=== PATIENT | male | born 1950 | race Caucasian/White ===

== ENCOUNTER → 2020-09-08 15:26 | Outpatient (BNVA) | payer BC, SELFPAY | PROVIDERS: PCP Family Medicine; Visit Provider Urology ==

== ENCOUNTER → 2021-06-16 09:53 | Outpatient (BNVA) | payer BC, SELFPAY | PROVIDERS: PCP Family Medicine; Visit Provider Urology ==

== ENCOUNTER → 2022-06-15 13:38 | Outpatient (BNVA) | payer BC, SELFPAY | PROVIDERS: PCP Family Medicine; Visit Provider Urology | DX: Z13.89 Encounter for screening for other disorder (principal) ==

== ENCOUNTER 2022-12-11 13:38 | Outpatient (AMB) | payer BC, SELFPAY ==
--- NOTE | 2022-12-11 13:39 | MHC.OFFVIS ---
Intake Intake Visit Reasons: 6mo/ testo Intake Note: Patient presents today for tele visit follow up testosterone Urology Medications: sildenafil, testosterone Blood Thinner: none Custom Home Installer Required: No Allergies No Known Allergies [No Known Allergies*] Allergy (Verified 12/11/22 22:17) Medication List - Last Reconciled 12/11/22 by JERSEY Nowak sildenafil 50 mg PO DAILY PRN testosterone 2 pumps topical DAILY 28 days HPI HPI Comments History of Present Illness Details Frankie is a pleasant 72 year old male patient of Dr. Hand. He is being follow-up on today via video telehealth for his hypogonadism and erectile dysfunction. In discussion with the patient today reports to be doing and feeling well. He discusses his frustration in recent canceled appointment due to labs not being obtain. Recent testosterone results reviewed with the patient today. Testosterone 12/12--. However it does not appear patient obtain CBC. This was discussed with the patient today he reports he will report to [facility] laboratory to have his labs drawn the . He reports compliance with AndroGel as prescribed. he discusses feeling testosterone therapy has improved his energy and feels much better. he otherwise offers no issues or concerns at this time. He denies any issues with his urination. He is happy with his current voiding parameters. He otherwise offers no issues or concerns. Discussed and stressed the importance of obtaining labs this week as well as in near future appointments for continuity of care. 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 Feels AndroGel continuing to work. Laboratories 08/10 Hct 44, PSA 0.9 - prior T levels have been 600 - 05/13 T 448 P 1.0, 12/11 T 450, 06/14 T 370 P 1.7, 12/12 T 652 Adverse effects - none reported Erectile dysfunction Response to Viagra 150 mg Discussed that maximum tested doses are 200 mg limited by vasocongestion Continue with periodic laboratory monitoring PFS Medical History Erectile dysfunction Hypogonadism in male Surgical History History of surgery Review of Systems Const Reports as per HPI Eyes Reports no additional complaints ENT Reports no additional complaints Card Reports no additional complaints Resp Reports no additional complaints GI Reports no additional complaints Reports as per HPI Musc Reports no additional complaints Neuro Reports no additional complaints Psych Reports as per HPI Endo Reports no additional complaints Edmund/Lymph Reports no additional complaints Aller/Immun Reports no additional complaints Physical Exam Const General: cooperative, healthy appearing, comfortable, no acute distress, well developed, alert and awake Orientation/consciousness: patient oriented x3 Resp Effort & Inspection: normal respiratory effort and able to speak in complete sentences Neuro General: patient oriented x3 Psych Appearance: grossly normal and well kempt Mental Status: mental status grossly normal Speech and movement: Clear speech present Affect: normal affect Attitude: cooperative Thought process: Impoverished thought process present Thought content: Normal thought content present Insight: Fair insight present (Psych) Judgement: Fair judgement present (Psych) Assessment & Plan Assessment & Plan (1) Low testosterone: Code(s): R79.89 - Other specified abnormal findings of blood chemistry (2) BPH (benign prostatic hyperplasia): Code(s): N40.0 - Benign prostatic hyperplasia without lower urinary tract symptoms (3) Erectile dysfunction: Code(s): N52.9 - Male erectile dysfunction, unspecified Plan Recent testosterone results reviewed with the patient today; as noted above. Patient will obtain CBC this week; discussed and stressed the importance in doing so. Discussed at length importance of obtaining labs as ordered as well as for continuity of care. Patient denies any urological issues or concerns at this time. He is happy with current voiding parameters. Refill provided. PSA, testosterone, and CBC in 6 months. Follow-up in 6 months with labs to be completed prior; or sooner with any issues, concerns, and or questions. Orders: Orders Prostate Specific Antigen 6 Months N40.0 - Benign prostatic hyperplasia without lower urinary tract symptoms Complete Blood Count no Diff 6 Months E29.1 - Testicular hypofunction Testosterone, Total 6 Months R79.89 - Other specified abnormal findings of blood chemistry Medications: Refilled testosterone apply 1 pump amount over max area of EACH upper arm and shoulder 2 pumps topical DAILY 75 grams 5RF 28 days R79.89 - Other specified abnormal findings of blood chemistry Patient Instructions: The patient had an opportunity to ask questions regarding the treatment plan. All questions were answered. Physical exam, labs, and imaging were discussed and reviewed in detail. As well as risks, benefits, and discussion of treatment choices. No major barriers to understanding were identified. The patient expressed understanding and agreement with the above treatment plan. The patient was made aware they should contact our office by phone for worsening of their current condition, the appearance of new symptoms, or with any questions or concerns. Compliance is encouraged with any medications and follow up testing that is ordered. It is a privilege to be allowed the opportunity to participate in? your urological care.? Again, if you have any questions or concerns If you have any questions or concerns please do not hesitate to contact me. The office is [phone]. This note is constructed using voice recognition software. While every effort has been made to ensure accuracy supervisor industrial garment errors may have been included. Yours sincerely, JERSEY Nowak Telehealth Telehealth Location of provider rendering services: practice address Location of patient: address on file Patient Identification confirmed using: Name, : Yes Telehealth method: video Patient verbally consented to treatment: Yes Patient verbally consented to billing insurance company: Yes Patient informed of any privacy concerns related to visit: Yes Minutes spent on Phone/Video with Pt.: 15 Coding Level of Care Code Tele Est Pt Level 4 (10776) Diagnoses Low testosterone R79.89 BPH (benign prostatic hyperplasia) N40.0 Erectile dysfunction N52.9
== END 2022-12-11 15:52 | disposition home or self-care (01) ==
LOC: HO.HUSH 13:39
PROVIDERS: PCP Family Medicine; Visit Provider Nurse Practitioner Family
DX: R79.89 Other specified abnormal findings of blood chemistry (principal); N40.0 Benign prostatic hyperplasia without lower urinary tract symptoms; N52.9 Male erectile dysfunction, unspecified
CPT/HCPCS: 99214

== ENCOUNTER → 2022-12-11 13:38 | Outpatient (BNVA) | payer BC, SELFPAY | PROVIDERS: PCP Family Medicine; Visit Provider Nurse Practitioner Family ==

== ENCOUNTER 2023-06-28 09:21 | Outpatient (AMB) | payer BC, SELFPAY ==
--- NOTE | 2023-06-28 09:22 | A.OFFVIS_ITS ---
Intake Intake Visit Reasons: 6MLabs(set) Intake Note: Patient presents today for tele visit follow up testosterone PSA: 1.50 Testosterone: 436 Urology Medications: sildenafil, testosterone Blood Thinner: none Composing Machine Operator Required: No Allergies No Known Allergies [No Known Allergies*] Allergy (Verified 06/28/23 09:40) Medication List - Last Reconciled 06/28/23 by JERSEY Nowak lorazepam mg PO sildenafil 50 mg PO DAILY PRN testosterone 2 pumps topical DAILY 28 days HPI HPI Comments History of Present Illness Details Frankie is a pleasant 72 year old male patient of Dr. Hand. He is being follow-up on today via video telehealth for his hypogonadism and erectile dysfunction. In discussion with the patient today reports to be doing and feeling well. Recent testosterone, PSA, and CBC results reviewed with the patient today. 06/15--testosterone 436, H/H 15.4/46.5, PSA 1.5. He reports compliance with AndroGel as prescribed. He discusses feeling testosterone therapy has improved his energy and feels much better. He otherwise offers no issues or concerns at this time. He denies any issues with his urination. He is happy with his current voiding parameters. He otherwise offers no issues or concerns. Discussed lifestyle modifications to assist with erectile dysfunction as well as hypogonadism. 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 Feels AndroGel continuing to work. Laboratories 08/10 Hct 44, PSA 0.9 - prior T levels have been 600 - 05/13 T 448 P 1.0, 12/11 T 450, 06/14 T 3 70 P 1.7, 12/12 T 652 Adverse effects - none reported Erectile dysfunction Response to Viagra 150 mg Discussed that maximum tested doses are 200 mg limited by vasocongestion Continue with periodic laboratory monitoring [facility] Medical History Erectile dysfunction Hypogonadism in male Surgical History History of surgery Review of Systems Const Reports as per HPI Eyes Reports no additional complaints ENT Reports no additional complaints Card Reports no additional complaints Resp Reports no additional complaints GI Reports no additional complaints Reports as per HPI Musc Reports no additional complaints Neuro Reports no additional complaints Psych Reports as per HPI Endo Reports no additional complaints Edmund/Lymph Reports no additional complaints Aller/Immun Reports no additional complaints Physical Exam Const General: cooperative, healthy appearing, comfortable, no acute distress, well developed, alert and awake Orientation/consciousness: patient oriented x3 Resp Effort & Inspection: normal respiratory effort and able to speak in complete sentences Neuro General: patient oriented x3 Psych Appearance: grossly normal and well kempt Mental Status: mental status grossly normal Speech and movement: Clear speech present Affect: normal affect Attitude: cooperative Thought process: Normal thought process present Thought content: Normal thought content present Insight: Fair insight present (Psych) Judgement: Fair judgement present (Psych) Assessment & Plan Assessment & Plan (1) Low testosterone: Code(s): R79.89 - Other specified abnormal findings of blood chemistry (2) BPH (benign prostatic hyperplasia): Code(s): N40.0 - Benign prostatic hyperplasia without lower urinary tract symptoms (3) Erectile dysfunction: Code(s): N52.9 - Male erectile dysfunction, unspecified Plan Recent testosterone results reviewed with the patient today; as noted above. Patient denies any urological issues or concerns at this time. He is happy with current voiding parameters. Refill provided. Discussed at length lifestyle modifications to assist with ED as well as hypogonadism. He reports adequate erections and maintaining erections with 50 mg of Cialis as needed prior to sexual activity. PSA, testosterone, and CBC in 6 months. Follow-up in 6 months with labs to be completed prior; or sooner with any issues, concerns, and or questions. Orders: Orders PSA,Total (Free>4and<10) 6 Months R7. - Other specified abnormal findings of blood chemistry Testosterone, Free/Total 6 Months R7. - Other specified abnormal findings of blood chemistry Complete Blood Count no Diff 6 Months E29.1 - Testicular hypofunction, R7. - Other specified abnormal findings of blood chemistry Medications: Refilled testosterone apply 1 pump amount over max area of EACH upper arm and shoulder 2 pumps topical DAILY 28 days 75 grams 5RF R7. - Other specified abnormal findings of blood chemistry Patient Instructions: The patient had an opportunity to ask questions regarding the treatment plan. All questions were answered. Physical exam, labs, and imaging were discussed and reviewed in detail. As well as risks, benefits, and discussion of treatment choices. No major barriers to understanding were identified. The patient expressed understanding and agreement with the above treatment plan. The patient was made aware they should contact our office by phone for worsening of their current condition, the appearance of new symptoms, or with any questions or concerns. Compliance is encouraged with any medications and follow up testing that is ordered. It is a privilege to be allowed the opportunity to participate in? your urological care.? Again, if you have any questions or concerns If you have any questions or concerns please do not hesitate to contact me. The office is [phone]. This note is constructed using voice recognition software. While every effort has been made to ensure accuracy radio technician errors may have been included. Yours sincerely, JERSEY Nowak Telehealth Telehealth Location of provider rendering services: practice address Location of patient: address on file Patient Identification confirmed using: Name, : Yes Telehealth method: video Patient verbally consented to treatment: Yes Patient verbally consented to billing insurance company: Yes Patient informed of any privacy concerns related to visit: Yes Minutes spent on Phone/Video with Pt.: 20 Coding Level of Care Code Tele Est Pt Level 4 (03866) Diagnoses Low testosterone R79.89 BPH (benign prostatic hyperplasia) N40.0 Erectile dysfunction N52.9
== END 2023-06-28 09:56 | disposition home or self-care (01) ==
LOC: HO.HUSH 09:22
PROVIDERS: PCP Family Medicine; Referring Provider Family Medicine; Visit Provider Nurse Practitioner Family
DX: R79.89 Other specified abnormal findings of blood chemistry (principal); N40.0 Benign prostatic hyperplasia without lower urinary tract symptoms; N52.9 Male erectile dysfunction, unspecified
CPT/HCPCS: 99214

== ENCOUNTER → 2023-06-28 09:21 | Outpatient (BNVA) | payer BC, SELFPAY | PROVIDERS: PCP Family Medicine; Visit Provider Nurse Practitioner Family ==

== ENCOUNTER 2024-01-02 08:31 | Outpatient (AMB) | payer BC, SELFPAY ==
--- NOTE | 2024-01-02 08:32 | MHC.OFFVIS ---
Intake Visit Reasons: follow up testosterone, psa, and cbc labs Intake Note: Patient is Present for Telephone Follow Up lab Urology Med:Testosterone, Sildenafil Antibiotic Allergy:None Blood Thinner: None PSA,Testosterone,CBC completed on 12/20/23 Javascript Web Developer Required: No Accompanied by: Self / Same As Patient Allergies No Known Allergies [No Known Allergies*] Allergy (Verified 01/02/24 08:49) Medication List - Last Reconciled 01/02/24 by JERSEY Nowak lorazepam mg PO meloxicam 7.5 mg PO BID sildenafil 50 mg PO DAILY PRN testosterone 2 pumps topical DAILY 28 days HPI Comments Details: Frankie is a pleasant 73 year old male patient of Dr. Hand. He is being follow-up on today via video telehealth for his hypogonadism and erectile dysfunction. In discussion with the patient today reports to be doing and feeling well. Recent testosterone, PSA, and CBC results reviewed with the patient today. Testosterone 12/13 606, free testosterone 17.7%, PSA 1.2, H/H 15.6/46.7. He reports compliance with AndroGel as prescribed. He discusses feeling testosterone therapy has improved his energy and feels much better. He reports no bothersome urinary issues. He does however discuss his erectile dysfunction. He reports at times he feels p.r.n. Viagra is adequate with obtaining and maintaining erections that are adequate for penetration however does not feel it is always consistent. We discussed at length potential causes of erectile dysfunction as well as further treatment options. We discussed risks and benefits of these treatment options. We discussed lifestyle modifications to assist with erectile dysfunction as well as hypogonadism. He otherwise offers no other issues or concerns at this time. [facility] Medical History Erectile dysfunction Hypogonadism in male Surgical History History of surgery Review of Systems Const Reports as per HPI Eyes Reports no additional complaints ENT Reports no additional complaints Card Reports no additional complaints Resp Reports no additional complaints GI Reports no additional complaints Reports as per HPI Musc Reports no additional complaints Neuro Reports no additional complaints Psych Reports as per HPI Endo Reports no additional complaints Edmund/Lymph Reports no additional complaints Aller/Immun Reports no additional complaints Physical Exam Const General: cooperative, healthy appearing, comfortable, no acute distress, well developed, alert and awake Orientation/consciousness: patient oriented x3 Resp Effort & Inspection: normal respiratory effort and able to speak in complete sentences Neuro General: patient oriented x3 Psych Appearance: grossly normal and well kempt Mental Status: mental status grossly normal Speech and movement: Clear speech present Affect: normal affect Attitude: cooperative Thought process: Normal thought process present Thought content: Normal thought content present Insight: Fair insight present (Psych) Judgement: Fair judgement present (Psych) Telehealth Telehealth Telehealth Platform: [employer] Location of provider rendering services: practice address Location of patient: address on file Patient Identification confirmed using: Name, : Yes Telehealth method: video Patient verbally consented to treatment: Yes Patient verbally consented to billing insurance company: Yes Patient informed of any privacy concerns related to visit: Yes Minutes spent on Phone/Video with Pt.: 35 Assessment & Plan Assessment & Plan (1) Erectile dysfunction: Code(s): N52.9 - Male erectile dysfunction, unspecified Category: Medical (2) Low testosterone: Code(s): R79.89 - Other specified abnormal findings of blood chemistry Category: Medical Plan Recent labs reviewed with the patient today; as noted above. Patient currently denies any bothersome urinary issues. He reports be happy with current voiding parameters. Refill provided. Discussed at length lifestyle modifications to assist with ED as well as hypogonadism. Will obtain PSA, testosterone, and CBC in 6 months. Start low-dose Cialis as discussed and prescribed. Discussed further treatment options for erectile dysfunction; this was discussed at length; risks and benefits of these options were discussed. All questions were answered. Continue p.r.n. Viagra Follow-up in 6 months with labs to be completed prior; or sooner with any issues, concerns, and or questions. Orders: Orders Prostate Specific Antigen 6 Months R79.89 - Other specified abnormal findings of blood chemistry Complete Blood Count no Diff 6 Months E29.1 - Testicular hypofunction Testosterone, Free/Total 6 Months E11.69 - Type 2 diabetes mellitus with other specified complication, N52.1 - Erectile dysfunction due to diseases classified elsewhere Medications: New tadalafil (Cialis) [id number] [facility] [id number] Member [id number] 5 mg PO DAILY 90 days 90 tabs 0RF Refilled testosterone apply 1 pump amount over max area of EACH upper arm and shoulder 2 pumps topical DAILY 28 days 75 grams 5RF R79.89 - Other specified abnormal findings of blood chemistry Coding Level of Care Code Tele Est Pt Level 4 (77560) Diagnoses Erectile dysfunction N52.9 Low testosterone R79.89 Time Spent (min) 35
== END 2024-01-02 08:57 | disposition home or self-care (01) ==
LOC: HO.HUSH 08:31
PROVIDERS: PCP Family Medicine; Visit Provider Nurse Practitioner Family
DX: N52.9 Male erectile dysfunction, unspecified (principal); R79.89 Other specified abnormal findings of blood chemistry
CPT/HCPCS: 99214

== ENCOUNTER → 2024-01-02 08:31 | Outpatient (BNVA) | payer BC, SELFPAY | PROVIDERS: PCP Family Medicine; Visit Provider Nurse Practitioner Family ==

== ENCOUNTER 2024-07-02 09:27 | Outpatient (AMB) | payer BC, SELFPAY ==
--- NOTE | 2024-07-02 09:28 | A.OFFVIS_ITS ---
Intake Visit Reasons: 6M labs Intake Note: Patient is Present for Telephone Follow Up lab Urology Med:Testosterone, Sildenafil Antibiotic Allergy:None Blood Thinner: None Store Loss Prevention Manager Required: No Accompanied by: Self / Same As Patient Allergies No Known Allergies [No Known Allergies*] Allergy (Verified 07/02/24 09:31) Medication List - Last Reconciled 07/02/24 by JERSEY Nowak lorazepam mg PO meloxicam 7.5 mg PO BID sildenafil 50 mg PO DAILY PRN tadalafil (Cialis) 5 mg PO DAILY 90 days testosterone 2 pumps topical DAILY 28 days HPI Comments Details: Frankie is a 73 year old male patient of Dr. Hand. He is being follow- up on today via video telehealth for his hypogonadism and erectile dysfunction. In discussion with the patient today he discusses his frustration regarding labs prior to appointment. He discusses having a difficult time remembering to have labs completed prior to appointment. Unfortunately labs are not yet completed however he reports he will go today. Labs fax to [facility] lab in [place] as requested. We discussed the importance of obtaining labs for further assessment evaluation in compliance with medications as prescribed. Previous labs are as follows: Testosterone: 12/13 606 Free testosterone 12/13 17.7 PSA 12/13 1.2 Hemoglobin/Hematocrit: 15.6/46.7 He does report compliance with testosterone as prescribed. Again will await labs in review with patient once completed. [facility] Medical History Erectile dysfunction Hypogonadism in male Surgical History History of surgery Review of Systems Const Reports as per HPI Eyes Reports no additional complaints ENT Reports no additional complaints Card Reports no additional complaints Resp Reports no additional complaints GI Reports no additional complaints Reports as per HPI Musc Reports no additional complaints Neuro Reports no additional complaints Psych Reports as per HPI Endo Reports no additional complaints Edmund/Lymph Reports no additional complaints Aller/Immun Reports no additional complaints Physical Exam Const General: cooperative, comfortable, no acute distress, well developed, alert and awake Resp Effort & Inspection: normal respiratory effort and able to speak in complete sentences Psych Appearance: grossly normal and well kempt Speech and movement: Clear speech present Attitude: cooperative Thought content: Normal thought content present Insight: Fair insight present (Psych) Judgement: Fair judgement present (Psych) Telehealth Telehealth Telehealth Platform: [employer] Location of provider rendering services: practice address Location of patient: address on file Patient Identification confirmed using: Name, : Yes Telehealth method: video Patient verbally consented to treatment: Yes Patient verbally consented to billing insurance company: Yes Patient informed of any privacy concerns related to visit: Yes Minutes spent on Phone/Video with Pt.: 15 Assessment & Plan Assessment & Plan (1) Erectile dysfunction: Code(s): N52.9 - Male erectile dysfunction, unspecified Category: Medical (2) Low testosterone: Code(s): R79.89 - Other specified abnormal findings of blood chemistry Category: Medical Plan Orders for CBC, PSA, and testosterone free and total were fax as requested. We discussed importance of obtaining labs prior to appointment Continue testosterone as prescribed. Will review labs once completed Patient Instructions: The patient had an opportunity to ask questions regarding the treatment plan. All questions were answered. Physical exam, labs, and imaging were discussed and reviewed in detail. As well as risks, benefits, and discussion of treatment choices. No major barriers to understanding were identified. The patient expressed understanding and agreement with the above treatment plan. The patient was made aware they should contact our office by phone for worsening of their current condition, the appearance of new symptoms, or with any questions or concerns. Compliance is encouraged with any medications and follow up testing that is ordered. It is a privilege to be allowed the opportunity to participate in? your urological care.? Again, if you have any questions or concerns If you have any questions or concerns please do not hesitate to contact me. The office is [phone]. This note is constructed using voice recognition software. While every effort has been made to ensure accuracy harm reduction worker errors may have been included. Yours sincerely, JERSEY Nowak Coding Level of Care Code Tele Est Pt Level 2 (93626) Diagnoses Erectile dysfunction N52.9 Low testosterone R79.89
--- OUTSIDE RECORDS SUMMARY | 2024-07-02 11:04 | XMS_ITS | Data Portability ---
Author Organization [place] - [facility], [facility] Office Address [address] [facility], [address] [place] [address] Care Team Providers Care Orchid Grower Name Role Phone RADHAEDWARD Primary Care Provider [phone] Assessment No assessment recorded. Plan of Treatment Reminders Order Date Submit Date Provider Last Modified By Organization Details Last Modified Time Details Appointments None recorded. Lab None recorded. Referral physical therapist referral - S/P Arthroscop ic Cuff Repair-Lef t shoulder 2023 024 alonzo Urrutia [facility], [address] [facility], [facility], [place], [address], 4 17:22:00 physical therapist referral - LEFT SAD RCR 08/02/232023 024 alonzo Urrutia [facility], [address] , [facility] [address], [place], [address], 4 18:07:37 Procedures None recorded. Surgeries None recorded. Imaging None recorded. Medication Orders meloxicam 7.5 mg tablet 2023 024 ighobrial [facility], [address] [place], [address], 4 17:22:00 meloxicam 7.5 mg tablet 2023 024 [email or web address] [facility], [address] [place], [address], 4 08:13:02 Patient TargetsNo targets recorded. Patient InstructionsNo instructions recorded. Reason for Referral Physical Therapist Referral for Shoulder pain POST OP REHAB LEFT SAD RCR 08/02/23 IF BICEP TENODESIS: NO ACTIVE ELBOW FLEXION X 3WEEKS NO RESISITED ELBOW FLEXION X 8 WEEKS Referring Physician: Carola Mandel, Physician Construction Skills Teacher, Encounter Date: 08/12/2023 Physical Therapist Referral for Shoulder pain POST OP REHAB S/P Arthroscopic Cuff Repair-Left shoulder IF BICEP TENODESIS: NO ACTIVE ELBOW FLEXION X 3WEEKS NO RESISITED ELBOW FLEXION X 8 WEEKS Referring Physician: Estefanía Guevara, Orthopedic Surgery, Encounter Date: 11/21/2023 Results Created Date Observation Date Name Description Value Unit Range Abnormal Flag Note LastModifiedBy Organization Detail LastModifiedTime 05/20/19 24 05/17/2023 MRI, alee weiner, w/o contr roge Lopez in [facility] Access ion Number : [id number] Patijuan diego t [facility] Record Number : [id number] Date of : 1950 Date of Exam: 2023 Referr ing Physic lambert: Carola Lisa [facility] [address] [place] [address] Exam: MR Should er (C-) CPT 80504 - Left Room Descri ption: Freddy Siem Espr 1.5 Should er MRI left Clinic al Histor y: Pain Compar margo: 2022 Findin gs: Some sequen elvira are degrad ed by motion artifa ct Mild acromi oclavi cular osteoa rthrit is is unchan ged. Curved acromi on proces s Full-t hickne ss tear within footpr int fibers at the conflu ence of the supras pinatu s and infras pinatu s tendon fibers is unchan ged in extent . Torn fibers are retrac usman approx imatel y 1 to 1.5 cm. Tear measur es approx imatel y 1 to 1.5 cm front to back. Torn fibers are replac ed by interm ediate T2 signal which may be granul ation and/or scar tissue in the settin g of a chroni c tear. Second full-t hickne ss tear at the conflu ence of supras pinatu s and infras pinatu s tendon fibers occurs at the level of the latera l outlet on image 9 of series 4. Tendon gap measur es approx imatel y 1 to 1.5 cm medial to latera l by 1 to 1.5 cm front to back.. Torn fibers are replac ed by interm ediate T2 signal which may repres ent granul ation and/or scar tissue in the settin g of a chroni c tear. This tear likely was presen t on the previo us exam but it is better apprec iated on today' s PD fat satura usman images which have less motion . Mild fatty atroph y of the supras pinatu s and infras pinatu s muscle bellie s has not change d signif icantl y. The teres minor tendon is intact . Fatty atroph y of the teres minor muscle belly has not change d signif icantl y. No change in subsca pulari s tendin opathy Long head of the biceps tendon is torn and retrac usman. Impres jcarlos: Full-t hickne ss rotato r cuff tears are outlin ed above. Majori ty of torn fibers are replac ed by interm ediate T2 signal which may be granul ation and/or scar tissue in the settin g of chroni c tears. Overal l extent of the tears has not change d since the previo us exam. Stable subsca pulari s tendin opathy . Long head of the biceps tendon is torn and retrac usman. This is unchan ged. Fatty atroph y of the teres minor muscle belly is unchan ged and can be seen with shyla latera l space syndro me. Electr onical ly Signed By: Darryl Echavarria [facility] [address] [facility], [place], [address], 05/30/2023 14:17:40 05/20/19 24 05/17/2023 YASHIRA, alee weiner, w/o hanh [facility] Access ion Number : [id number] Nirav noyola Name: Frankie Hadley Record Number : [id number] Date of : 1950 Date of Exam: 2023 Referr ing Physic lambert: Carola Lisa Ogorod Sport [address] [facility] [place], [place] [address] Exam: MR Should er (C-) CPT 56490 - Right Room Descri ption: Freddy Siem Espr 1.5 MR Should er (C-) CPT 17690 CLINIC AL HISTOR Y: Pain in right should er, r/o Right should er imping ement TECHNI QUE: MRI of the right should er was perfor med withou t intrav enous contra st. COMPAR MARGO: MRI 018. FINDIN GS: Modera te acromi oclavi cular osteoa rthrit is is unchan ged. No eviden ce of recurr ent rotato r cuff tear status post repair . Interm ediate signal within supras pinatu s and infras pinatu s tendon fibers likely due to a combin ation of prior surger y and tendin opathy . Mild fatty atroph y of the supras pinatu s and infras pinatu s muscle bellie s hasn't change d. Teres minor tendon is intact Subsca pulari s tendin opathy Intra- articu lar biceps tendon is not seen. Correl ate for prior tenode sis Immedi ate T2 signal within a thicke musa inferi or glenoh umeral ligame nt. Glenoh umeral osteoa rthrit is with small osteop hytes. Diffus e absenc e of cartil age along the superi or-med ial aspect of the dejan l head IMPRES JCARLOS: No eviden ce of recurr ent rotato r cuff tear. Interm ediate signal within the supras pinatu s tendon is likely due to a combin ation of tendin opathy and postsu rgical change . Infras pinatu s and subsca pulari s tendin opathy . Intra- articu lar biceps tendon is not seen. Correl ate for prior tenode sis. Stable modera te acromi oclavi cular osteoa rthrit is. Mild glenoh umeral osteoa rthrit is is outlin ed above. Interm ediate T2 signal within a thicke musa inferi or glenoh umeral ligame nt. Findin g can be seen with synovi tis and adhesi ve capsul itis. Bone: The bone and bone marrow are normal . Articu lar cartil age: Thinni ng and irregu larity of the dejan l and glenoi d cartil age. AC joint: Severe degene rative change . Rotato r cuff: Suscep tibili ty artifa ct from prior rotato r cuff repair . Modera te grade articu lar surfac e partia l tear at the supras pinatu s. The infras pinatu s, teres minor and subsca pulari s tendon s are intact . Unchan ged mild fatty atroph y of the supras pinatu s and infras pinatu s.. Glenoi d labrum and biceps tendon : Diffus e labral degene ration , but no displa vimal labral tear. Chroni c tear of the long head of the biceps tendon . IMPRES JCARLOS: Partia l tear at the articu lar surfac e of the supras pinatu s. Chroni c biceps tendon tear. Severe AC arthri tis. Modera te glenoh umeral osteoa rthrit is. I, Darryl Echavarria MD, have review ed the images and report and concur with the reside nt, Jean trejo MD's, jaymie lozano. Electr onical ly Signed By: Darryl Echavarria [facility] ([facility]) [address] [place] [address], [address], 05/30/2023 14:17:06 Result Notes None recorded. Problems Name Problem SNOMED Code Status Onset Date Resolution Date Notes Provider Name and Address Organization Details Recorded Time Pain of knee region 0631724820 Active 2019 [place] Gutierrez [facility] 3 09:49:02 Cellulitis of left hand 645672521378 17378 Active 2018 [place] Gutierrez [facility] 3 09:49:02 Nocturia due to benign prostatic hypertroph y 583314084791 1 Active 2017 [place] Gutierrez [facility] 3 09:49:02 Partial thickness rotator cuff tear 221738347 Active 2017 [place] Gutierrez [facility] 3 09:49:02 Triggering of digit 189081356 Active 2017 Kely clark [facility] 3 09:49:02 Chronic low back pain 336531018 Active 2021 Kely clark, [facility] 3 09:49:02 Patient encounter status 301777931 Active 2017 Kelybrenden clark [facility] 3 09:49:02 Pain in right hip joint 327786809358 102 Active 2019 Kelybrenden clark [facility] 3 09:49:02 Osteoarthr itis of left hip joint 343374926820 108 Active 2017 Kely Chapo clark [facility] 3 09:49:02 Osteoarthr itis of right hip joint 151600111868 107 Active 2019 Kely Chapo clark [facility] 3 09:49:02 Dyslipidem ia 190228394 Active 2017 Kelybrenden clark [facility] 3 09:49:02 Advice given 605096181 [facility] 09:49:02 Psychophys iologic insomnia 753844536 Active 2022 Kely Chapo clark [facility] 3 09:49:02 Preprocedu ral examinatio n done 446684542378 104 Active 2018 Kely Chapo clark [facility] 3 09:49:02 Strain of hamstring muscle 901953904598 Active 2017 Kely Chapo clark [facility] 3 09:49:02 Anxiety 63968459 Active 2022 Kely Chapo clark [facility] 3 09:49:02 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 55554459 Active 2019 Kely clark [facility] 3 09:49:02 Obstructiv e sleep apnea syndrome 30729996 [facility] 3 09:49:02 Hiatal hernia 72435234 Active 2017 Kely Cowan [facility] 3 09:49:02 Erectile dysfunctio n 760118503 Active 2018 Kely Cowan [facility] 3 09:49:02 Tick bite 68676934 Active 2020 Kely Smith [facility] 3 09:49:02 Strain of rotator cuff of shoulder 359102652 Active 2023 Alexandrea Rigoberto [facility] 4 15:02:58 Non-trauma tic partial tear of left rotator cuff 136180941385 9103 Active 2023 Tomasa Tanner [facility] 4 13:23:56 Strain of right hamstring muscle Active 2017 [facility] 4 13:23:56 Rupture of tendon of biceps 520566316 Active 2023 [facility] 4 13:23:56 Problem Notes None recorded. Procedures Surgical History Date Name Laterality Status Provider Name and Address Organization Details Recorded Time 08/02/19 24 Orthopaedic Surgery completed Mohinder Gates [facility] 08/12/2023 15:07:12 02/08/20 20 Other completed Andrew Mendieta [facility] 03/05/2023 14:56:13 07/11/19 19 Orthopaedic Surgery completed Benjamin Darling [facility] 07/18/2018 11:47:01 04/22/19 18 Orthopaedic Surgery completed Jacy Murguia [facility] 06/12/2018 12:04:35 04/22/19 05 Orthopaedic Surgery completed Megan Joiner [facility] 11/01/2016 09:28:23 04/22/18 85 Orthopaedic Surgery completed Megan Davenportdonovan [facility] 11/01/2016 09:28:12 04/22/18 75 Other completed Megan Davenportleroyvin [facility] 11/01/2016 09:27:59 Imaging Results Imaging Date Name Status LastModified by Organiz ation Details LastModified Time 05/17/2023 MRI, shoulder, w/o contrast completed [facility] [address] [place], [address], 05/30/2023 14:17:40 05/17/2023 MRI, shoulder, w/o contrast completed [facility] ([facility]) [address] [place], [address], 05/30/2023 14:17:06 Procedure Notes None recorded. Medical Equipment None Reported. Allergies Allergen ID Allergen Name Allergen Category Reaction Reaction Severity Criticality Documentation Date Start Date Code Code System Note Provider Name and Address Organization Details Recorded Time No known allergy (situatio n) Not available Not available Not available Not available 02/11/2023 39526 6003 SNOMED Courtney Cowan [facility] 09:48:54 No known drug allergies Medications Name Sig Start Date Stop Date Status Note LastModified by Organization Details LastModified Time celecoxib 200 mg capsule 05/02 completed Not Available Not Available Not Available amoxicilli n 500 mg capsule 05/02 completed Not Available Not Available Not Available sildenafil 50 mg tablet TAKE ONE TABLET BY MOUTH ONCE A DAY NEEDED active Not Available Not Available No t Available hydrocodon e 5 mg-acetami nophen 325 mg tablet 08/14 completed Not Available Not Available Not Available ascorbic acid buffered ER 1,000 mg tablet,ext ended release 1000 mg by oral route. 2019 active Not Available Not Available Not Avai lable AndroGel 1 % (25 mg/2.5 gram) transderma l gel packet 1 {packet} by transder m. route. 2018 active Not Available Not Available Not Avai lable acetaminop hen 300 mg-codeine 30 mg tablet 05/02 completed Not Available Not Available Not Available prochlorpe razine maleate 10 mg tablet 11/01 completed Not Available Not Available Not Available hydrocodon e 10 mg-acetami nophen 325 mg tablet 05/02 completed Not Available Not Available Not Available tramadol 50 mg tablet 05/02 completed Not Available Not Available Not Available triamcinol one acetonide 0.1 % topical cream APPLY TWO TIMES A DAY TO RASH IN RIGHT GROIN FOLD FOR 1 WEEK ON, 1 WEEK OFF. MAY MIX WITH KETOCONA ZOLE CREAM. active Not Available Not Available No t Available amoxicilli n 500 mg tablet TAKE 4 TABLETS BY MOUTH 1 HOUR PRIOR TO DENTAL APPOINTM ENT active Not Available Not Available No t Available meloxicam 7.5 mg tablet TAKE ONE TABLET BY MOUTH TWICE A DAY NEEDED active Not Available Not Available No t Available oxycodone- acetaminop hen 5 mg-325 mg tablet TAKE ONE TABLET BY MOUTH EVERY 4 TO 6 HOURS NEEDED FOR PAIN 11/20 completed Not Available Not Available Not Available lorazepam 0.5 mg tablet TAKE ONE TABLET BY MOUTH EVERY 12 HOURS NEEDED FOR ANXIETY active Not Available Not Available No t Available Kenalog 10 mg/mL suspension for injection Take 2 mL by injectio n route. 2023 active US Guided Not Available Not Available Not Available doxycyclin e monohydrat e 100 mg capsule TAKE 2 CAPSULES BY MOUTH ONCE FOR 1 DOSE active Not Available Not Available No t Available lutein 6 mg capsule 6 mg by oral route. 2019 active Not Available Not Available Not Avai lable betamethas one dipropiona te 0.05 % topical cream APPLY THIN LAYER TO AFFECTED AREAS ON RIGHT LEG TWO TIMES A DAY FOR 2 WEEKS, THEN TAKE 1 WEEK OFF. FOLLOW WITH MOISTURI ZER, REPEAT NEEDED active Not Available Not Available No t Available ketoconazo le 2 % topical cream APPLY THIN LAYER TO RASH IN GROIN TWO TIMES A DAY UNTIL RESOLVED NEEDED. MAY USE IN COMBINAT ION WITH TRIAMCIN OLONE active Not Available Not Available No t Available tadalafil 5 mg tablet TAKE ONE TABLET BY MOUTH EVERY DAY active Not Available Not Available No t Available ibuprofen active Not Available Not Sharlene ilable Not Available Prilosec 09/25 completed Not Available Not Available Not Available peg 3350-elect rolytes 236 gram-22.74 gram-6.74 gram-5.86 gram solution 11/01 completed Not Available Not Available Not Available GaviLyte-N 420 gram oral solution 07/18 completed Not Available Not Available Not Available testostero ne 20.25 mg/1.25 gram per pump act.(1.62 %) transderma l gel APPLY THE CONTENTS OF 2 PUMP ACTUATIO NS TOPICALL Y DAILY (1 PUMP ACTUATIO N OVER MAX AREA OF EACH UPPER ARM AND SHOULDER ) active Not Available Not Available No t Available Eliquis 2.5 mg tablet 05/02 completed Not Available Not Available Not Available Flowflex COVID-19 Antigen Home Test kit USE DIRECTED PER MANUFACT URER INSTRUCT IONS TO TEST FOR COVID-19 02/11 completed Not Available Not Available Not Available Vitals Date Recorded Body height Provider Name an d Address Organization Details Last Updated DateTime 05/30/2023 185.42 cm Adelina Jensen [facility] 05/30/2023 14:35:38 Date Recorded Body height Body mass index (BMI) Body weight Provider Name and Address Organization Details Last Updated DateTime 09/12/2023 185.42 cm 28.4 kg/m2 51984.36 g Tomasa Tanner [facility] 09/12/2023 13:24:13 Date Recorded Body height Body mass index (BMI) Body weight Provider Name and Address Organization Details Last Updated DateTime 11/21/2023 185.42 cm 28.4 kg/m2 71613.36 g Daniel Whitehead [facility] 11/21/2023 15:32:16 Date Recorded Body height Body mass index (BMI) Body weight Provider Name and Address Organization Details Last Updated DateTime 03/05/2024 185.42 cm 28.4 kg/m2 34392.36 g Daniel Whitehead [facility] 03/05/2024 11:16:13 Social History Question Answer Notes LastModified by Organizat ion Details LastModified Time Tobacco Smoking Status Former Smoker quit 16 years ago Daniel clark [facility] 03/05/2024 11:16:18 What Is Your Level Of Alcohol Consumption? Occasional Information not available 03/05/2023 Do You Or Have You Ever Used E-cigarettes Or Vape? 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 Yes Information not available 03/05/2023 What Was The Date Of Your Most Recent Tobacco Screening? 09/25/2018 Information not available 03/05/2023 Do You Or Have You Ever Used Smokeless Tobacco? [id number] Information not available 03/05/2023 How Much Tobacco Do You Smoke? No Information not available 03/05/2023 What Types Of Sporting Activities Do You Participate In? Gym , Ride Bike Yoga, Ski Information not available 08/14/2018 How Many Years Have You Smoked Tobacco? 1 Information not available 03/05/2023 Work Related Injury? No Information not available 03/05/2023 Sex: Unknown Functional Status Question Answer Note LastModified by Organization D etails LastModified Time What is your exercise level? Moderate Information not available 08/14/2018 Mental Status None recorded. Family History Relationship Description Onset Age of this Age Resolved Age Notes LastModified by Organization Details LastModified Time Father No current problems or disability [email or web address] Not available 12:04:01 Mother No current problems or disability [email or web address] Not available 12:04:01 Medical History Condition Response HIV or AIDS N High Blood Pressure N Irregular Heartbeat N MRSA N Any Other Significant Medical Issues Y Weight Gain / Loss Y Hearing Loss N Angina, Heart Failure or Attack N Night Sweats N Seizures / Epilepsy N Osteoarthritis / Rheumatoid arthritis / Other Y Cancer Y Stroke N Ulcer / Stomach Bleeding / Indigestion N Visual Loss or Glaucoma N Blood Clots / Phlebitis N Heart Problems N Depression or Anxiety Y Emphysema / Chronic Bronchitis N Reaction to General/Local Anesthesia N Hepatitis / Jaundice N Kidney / Bladder Infections N Diabetes N Bleeding Disorder N Chemical Dependency / Alcoholism N Psoriasis / Skin Rash N Thyroid Disorder N Heart Disease N Asthma / Shortness of Breath / Sleep International Project Manager ea (please specify) N Pulmonary Embolism N Immunizations Vaccine Type Date Status Note Provider Nam e and Address Organization Details Recorded Time Influenza, adjuvanted, trivalent, PF 0 completed Kely clark, [facility] 02/11/2023 09:49:14 Influenza, high-dose, quadrivalent, PF 2 completed Kely clark, [facility] 02/11/2023 09:49:14 COVID-19, mRNA, LNP-S, PF, 100 mcg/0.5mL dose or 50 mcg/0.25mL dose 1 completed Kely clark, [facility] 02/11/2023 09:49:14 COVID-19, mRNA, LNP-S, PF, 100 mcg/0.5mL dose or 50 mcg/0.25mL dose 1 completed Kely clark, [facility] 02/11/2023 09:49:14 COVID-19, mRNA, LNP-S, bivalent, PF, 50 mcg/0.5 mL or 25mcg/0.25 mL dose 2 completed Kely clark, [facility] 02/11/2023 09:49:14 pneumococcal polysaccharide PPV23 0 completed Kely clark, [facility] 02/11/2023 09:49:14 influenza, unspecified formulation 0 completed Kely clark, [facility] 02/11/2023 09:49:14 Tdap 9 completed Kely clark, [facility] 02/11/2023 09:49:14 Pneumococcal conjugate PCV 13 2 completed Kely clark, [facility] 02/11/2023 09:49:14 Td (adult), 2 Lf tetanus toxoid, preservative free, adsorbed 1 completed Kely clark, [facility] 02/11/2023 09:49:14 Past Encounters Encounter ID Performer Location Encounter Start Date Encounter Closed Date Diagnosis/Indication Diagnosis SNOMED-CT Code Diagnosis ICD10 Code Diagnosis Note [id number] YOEL BARROS MD [facility] Office [address] [facility] [place] [address] 11/01/2016 09:21:45 11/01/2016 10:26:46 Ankle instability 546885 M25.371 Osteoarthritis 935427509 M19.171 Abnormal gait 02752290 R 26.9 Muscle atrophy 93739896 M62.561 [id number] ELENO OROURKE [facility] Office [address] [place] [id number] 05/02/2018 12:59:23 05/02/2018 13:50:54 Bursitis of right shoulder 9891812012 65145 M75.51 Shoulder pain 67956384 M 25.511 Strain of rotator cuff capsule 41509379 S46.011A [id number] ESTEFANÍA GUEVARA MD [address] [address] 06/12/2018 11:46:02 06/12/2018 12:34:25 Bursitis of right shoulder 4995372890 93938 M75.51 Osteophyte of bone 09466 46622 79026 M25.711 Strain of rotator cuff capsule 58781398 S46.011A [id number] ELENO OROURKE [facility] Office [address] [address] 07/18/2018 11:23:14 07/18/2018 12:15:12 Shoulder pain 24029385 M25.511 Strain of rotator cuff capsule 35816643 S46.011D [id number] ESTEFANÍA GUEVARA MD [facility] Office [address] [place] [id number] 08/14/2018 11:36:09 08/14/2018 13:10:47 Localized, primary osteoarthritis of the shoulder region 144183450 M19.011 Bicipital tenosynovitis 64027086 M75.21 Bursitis o f right shoulder 3221961074 36367 M75.51 Impingemen t syndrome of right shoulder region 3433466226 07761 M75.41 Shoulder pain 32317189 M 25.511 Strain of rotator cuff capsule 95938663 S46.011D [id number] ESTEFANÍA GUEVARA MD [facility] Office [address] [place] [id number] 09/25/2018 11:31:18 09/25/2018 12:00:58 Bursitis of right shoulder 2075667765 12283 M75.51 Impingemen t syndrome of right shoulder region 1389341113 23350 M75.41 Strain of rotator cuff capsule 31877635 S46.011D [id number] ESTEFANÍA GUEVARA MD [address] [address] 11/27/2018 14:03:01 11/27/2018 16:05:46 Bursitis of right shoulder 6832294581 07565 M75.51 Shoulder pain 98545094 M 25.511 Strain of rotator cuff capsule 11119330 S46.011D [id number] ELENO OROURKE [address] [address] 02/11/2023 09:10:56 02/11/2023 10:15:22 Bursitis of left shoulder 3471537631 39539 M75.52 Impingemen t syndrome of left shoulder region 2121049302 63952 M75.42 Pain of le ft shoulder joint 0777985006 8867511 M25.512 Rupture of rotator cuff of left shoulder 0731114921 3661137 M75.102 Strain of muscle of left shoulder [id number] S46.912A [id number] ESTEFANÍA GUEVARA MD [facility] Office [address] [address] 03/05/2023 14:49:58 03/05/2023 16:50:19 Strain of rotator cuff of shoulder [id number] S46.012A [id number] Deja Jansen [address] [address] 04/29/2023 09:41:07 04/29/2023 14:50:01 Bursitis of right shoulder [id number] 41245 M75.51 Bursitis o f left shoulder 0572321911 21206 M75.52 Bilateral impingement syndrome of shoulders [id number] M75.41 M75.42 Shoulder pain 59055150 M 25.512 M25.893 [id number] ESTEFANÍA GUEVARA MD [address] [address] 05/30/2023 14:03:55 05/30/2023 18:27:08 Strain of rotator cuff of shoulder [id number] S46.012A [id number] ELENO OROURKE [facility] Office [address] [place] [address] 08/12/2023 14:40:08 08/12/2023 15:14:49 Rupture of rotator cuff of right shoulder [id number] M75.101 Shoulder pain 02452535 M 25.418 [id number] ESTEFANÍA GUEVARA MD [address] [address] 09/12/2023 09:06:19 09/12/2023 17:29:49 Strain of rotator cuff of shoulder [id number] S46.011D [id number] ESTEFANÍA GUEVARA MD [facility] Office [address] [place] [address] 1 11/21/2023 15:20:40 11/21/2023 16:06:40 Shoulder pain 02033423 M25.512 Tendinitis of left shoulder 2348130045 [id number] M75.92 Pain of le ft shoulder joint 1819070839 [id number] M25.512 Strain of rotator cuff of shoulder 448967254 S46.011D [id number] ESTEFANÍA GUEVARA MD [facility] Office [address] [place] [address] 1 03/05/2024 11:00:03 03/05/2024 11:33:05 Strain of rotator cuff of shoulder [id number] S46.012A Health Concerns Section Related Observation LastModified by Organization Detai ls LastModified Time None Recorded Concern Status LastModified by Organization Details LastModified Time None Recorded Advance Directives Directive None Recorded Payers Encounter Date Sequence Insurance Name Policy Number Policy Grider Covered Member ID Grider Member ID Guarantor Name 05/30/2023 1 [place] [facility] [place] [id number] Michelle Zazueta [id number] [facility] 08/12/2023 1 [place] [facility] [employer] [place] [id number] Michelle Zazueta [id number] 28 Frankie [facility] 09/12/2023 1 [place] [facility] [place] [id number] Michelle Zazueta [id number] 28 [facility] 11/21/2023 1 [facility] [id number] Michelle Zazueta [id number] 28 Frankie [place] 03/05/2024 1 [facility]: [facility] [id number] Michelle Zazueta [id number] 28 [facility]ie [facility] Notes Date Note Type Note Provider Name and Address Organization Details Recorded Time 05/30/2023 text/html Dany comes in tod ay doing okay. Cortisone shot was great, but it wore off. Now he is uncomfortable again, but his range of motion and strength is fine. He has a tiny tear of the rotator cuff. We discussed options. Let us try some Mobic. Home exercise program. See how he does. If this does not improve over time, consider surgical intervention. Recheck in 2 months. ADDENDUM: Procedure would be a scope, debridement, decompression, cuff repair ESTEFANÍA GUEVARA MD [address] [place] [address], [phone], [facility] 07/03/2023 08:19:47 08/12/2023 text/html Frankie presents today for his first postop visit status post rotator cuff repair. He notes he is doing okay. On exam, portals are healing well without evidence of infection, there is no erythema, no drainage. Sutures are removed today. Normal elbow, wrist and hand motion. Neurovascular intact. We discussed post op care. We reviewed the surgery. Physical therapy can start next week, one - two times per week. Sling is to be worn at all times including bedtime, but should be removed multiple times a day, typically meals and showers are a good time to do this. Ice and anti-inflammatories are recommended for pain. No lifting or overhead activities at this time. Follow up is [address] Guevara. ELENO OROURKE [address] [place] [address], [phone], [facility] 08/14/2023 17:02:09 09/12/2023 text/html Dany has reached via telehealth. This visit was conducted as a real time interactive TeleHealth audio & visual via [employer]. The patient was identified by name and date of and consented to this TeleHealth visit. The patient was at their home in [place] and I was at my [place] office. Participants of the telehealth visit included myself and the patient. This was done over the course of 10 minutes including record review. He is 6 weeks out status post repair of the rotator cuff on the left. He gets about 90 degrees of elevation. He has 90 degrees of elevation, not a lot of pain. He is pleased with his current status, so continue physical therapy. Back in 6 weeks. A [id number] encounter. ESTEFANÍA GUEVARA MD [address] [place] [address], [phone], [facility] 09/13/2023 09:43:12 11/21/2023 text/html Frankie Hadley come s in today, 2-1/2 months out, doing okay. He posturally has some issues where he has to get his scapula back around. He has full motion. Says he does not have much pain. So, continue therapy. Back in 2 months. ESTEFANÍA GUEVARA MD [address] [place] [address], [phone], [facility] 11/22/2023 08:05:43 03/05/2024 text/html Frankie comes in today working hard in his therapy course postoperatively, getting better all the time, but still has some issues with repetitive abduction. He is doing more yard work and things like that which I think is extremely beneficial, so continue that back in 2 months. ESTEFANÍA GUEVARA MD [address] [place] [address], [phone], [facility] 03/06/2024 08:18:26
--- OUTSIDE RECORDS SUMMARY | 2024-07-02 11:05 | XMS_ITS | Data Portability ---
Author Organization [place] [facility], OFFICE Address [address], [facility] [address] [place] [phone] Assessment Encounter Date Assessment Date Assessment LastModified by Organization Details LastModified Time 01/14/2017 01/14/2017 We discussed the options related to his treatment. He has advanced OA with complete loss of the cartilage space interval, asphericity, and subchondral sclerosis. Left total hip arthroplasty is clearly the most reasonable treatment alternative at this point. We discussed the issues related to total hip arthroplasty in a lot of detail today including the preoperative process, the operative techniques, less invasive techniques, computer-assisted techniques, the types of implants, the types of bearings, and the perioperative risks. In addition, we discussed the typical hospitalization course following surgery and reasonable expectations for recovery, outcome, activity level, and long-term followup. He is interested in proceeding and we will begin to make arrangements. sbm Not available 01/14/2017 18:01:12 03/24/2018 03/24/2018 Mr. Hadley is progressing well after elective RTHR. We plan to continue progression of motion, strength, weight bearing, and reasonable activities as tolerated. sbm Not available 03/24/2018 11:51:27 01/15/2020 01/15/2020 We discussed the options related to his treatment. His right hip has end stage arthrosis with loss of the cartilage space interval, subchondral sclerosis, asphericity, cyst formation and osteophyte formation. Clearly right hip arthroplasty would be a reasonable treatment alternative for him. We discussed the issues related to total hip arthroplasty in a lot of detail today including the preoperative process, the operative techniques, less invasive techniques, computer-assisted techniques, the types of implants, the types of bearings, and the perioperative risks. In addition, we discussed the typical hospitalization course following surgery and reasonable expectations for recovery, outcome, activity level, and long-term followup. He is interested in proceeding, and we will begin to make arrangements. This visit was conducted as a real-time telehealth interactive video visit during this the national emergency and ongoing COVID-19 pandemic. He was identified and consented to this telehealth visit. He was at his home and I was at my home office. I spent a total of 12 minutes during this encounter. Greater than 50% of the time was devoted to counseling and coordinating care. This included reviewing records and pertinent studies, discussing diagnostic evaluation and workup, planning therapeutic interventions, and formulating the future disposition of care. sbm Not available 01/15/2020 11:25:31 04/01/2020 04/01/2020 Mr. Hadley is progressing well following elective RTHR. He decreased his use of external support faster than last time and has noticed more discomfort this time than last time. His implants are in good position. I've recommended that he use a cane again until his symptoms resolve and then to start progressing again thereafter. We'll determine further treatment based on his clinical progress. This visit was conducted as a real-time telehealth interactive video visit during this the national emergency and ongoing COVID-19 pandemic. He was identified and consented to this telehealth visit. He was at his home and I was at my home office. I spent a total of 15 minutes during this encounter. Greater than 50% of the time was devoted to counseling and coordinating care. This included reviewing records and pertinent studies, discussing diagnostic evaluation and workup, planning therapeutic interventions, and formulating the future disposition of care. sbm Not available 04/01/2020 13:07:40 Plan of Treatment Reminders Order Date Submit Date Provider Last Modified By Organization Details Last Modified Time Details Appointments None record ed. Lab None record ed. Referral None record ed. Procedures None record ed. Surgeries None record ed. Imaging None record ed. Medication Orders None record ed. Patient TargetsNo targets recorded. Patient InstructionsNo instructions recorded. Reason for Referral None Reported. Procedures Surgical History Date Name Laterality Status Provider Name and Address Organization Details Recorded Time 02/11/20 20 total replacement of right hip joint completed Marylin Amaya [place] - [facility] 04/01/2020 09:08:22 Appendectomy completed Igor Qiu MD [address] [place] [address],[address], [place], [address], [place] [facility] 01/14/2017 17:58:55 Knee Surgery completed Igor Qiu MD [address], [place], [address], [place] [facility] 01/14/2017 17:59:12 total replacement of left hip joint completed Igor Qiu MD [address], [place], [address], [place] [facility] 01/15/2020 11:23:46 Imaging Results None recorded. Procedure Notes None recorded. Medical Equipment None Reported. Allergies No known drug allergies Medications Name Sig Start Date Stop Date Status Note LastModified by Organization Details LastModified Time celecoxib 200 mg capsule PRE OP: TAKE 2 CAPSULES THE NIGHT BEFORE SURGERY AND TAKE ONE CAPSULE IN THE MORNING OF SURGERY, POST OP: TAKE 1 CAPSULE DAILY active Not Available Not Available No t Available amoxicillin 500 mg capsule Take 4 capsule(s ) 1hr prior to dental work active Not Available Not Available No t Available prednisone 10 mg tablet active Not Available Not Available No t Available doxycycline hyclate 100 mg capsule active Not Available Not Available Not Available sildenafil 50 mg tablet TAKE ONE TABLET BY MOUTH EVERY DAY NEEDED active Not Available Not Available No t Available Stool Softener 100 mg capsule TAKE ONE CAPSULE BY MOUTH TWICE A DAY active Not Available Not Available No t Available azithromycin 250 mg tablet active Not Available Not Availabl e Not Available meloxicam 15 mg tablet TAKE ONE TABLET BY MOUTH EVERY DAY active Not Available Not Available No t Available ondansetron HCl 4 mg tablet TAKE TWO TABLETS BY MOUTH TWICE A DAY NEEDED FOR NAUSEA active Not Available Not Available No t Available prochlorperazi ne maleate 10 mg tablet active Not Available Not Available No t Available hydrocodone 10 mg-acetaminoph en 325 mg tablet active Not Available Not Available Not Available tramadol 50 mg tablet TAKE ONE TABLET BY MOUTH EVERY 8 HOURS NEEDED FOR PAIN active Not Available Not Available No t Available acetaminophen 500 mg tablet TAKE 1 TABLET BY ORAL ROUTE EVERY 6 HOURS NEEDED NOT TO EXCEED 6 TABLETS PER 24HRS active Not Available Not Available No t Available warfarin 1 mg tablet Pre op: Starting 7 days prior to surgery take 1 tablet po nightly, Post op: Take as directed, up to 10 tablets, nightly po. active Not Available Not Available No t Available Ambien 5 mg tablet Take 1 tablet every day by oral route. 2019 active Not Available Not Available Not Avai lable naproxen 500 mg tablet TAKE ONE TABLET BY MOUTH TWICE A DAY active Not Available Not Available No t Available amoxicillin 875 mg-potassium clavulanate 125 mg tablet active Not Available Not Availabl e Not Available oxycodone 5 mg tablet TAKE ONE TABLET BY MOUTH TWICE A DAY NEEDED FOR MODERATE PAIN active Not Available Not Available No t Available Pneumovax-23 25 mcg/0.5 mL injection syringe ADM 0.5ML IM UTD active Not Available Not Available No t Available peg 3350-electroly victor manuel 236 gram-22.74 gram-6.74 gram-5.86 gram solution active Not Available Not Available Not Available testosterone 20.25 mg/1.25 gram per pump act.(1.62 %) transdermal gel active Not Available Not Available Not Available Eliquis 2.5 mg tablet TAKE ONE TABLET BY MOUTH TWICE A DAY FOR 30 DAYS AFTER SURGERY active Not Available Not Available No t Available Fluad 65yr up(PF)45 mcg(15 mcgx3)/0.5 mL intramuscular syringe ADM 0.5ML IM UTD active Not Available Not Available No t Available Vitals Date Recorded Body height Body mass index (BMI) Body weight Provider Name and Address Organization Details Last Updated DateTime 01/14/2017 185.42 cm 27.2 kg/m2 29668.03 g Marylin Amaya MA - [facility] 01/14/2017 15:55:32 Date Recorded Systolic blood pressure Diastolic blood pressure Provider Name and Address Organization Details Last Updated DateTime 01/14/2017 120 mm[Hg] 86 mm[Hg] Igor Qiu MD [address] [place] [address],[address], [place], [address], [place] [facility] 01/14/2017 17:22:03 Date Recorded Body height Body mass index (BMI) Body weight Systolic blood pressure Diastolic blood pressure Provider Name and Address Organization Details Last Updated DateTime 03/24/2018 185.42 cm 27 kg/m2 50126.44 g 124 mm[Hg] 77 mm[Hg] Marylin Amaya MA - [facility] 8 09:04:11 Social History Question Answer Notes LastModified by Organizat ion Details LastModified Time Tobacco Smoking Status Former Smoker Igor Qiu MD [address], [place], [address], [place] [facility] 01/14/2017 17:58:24 Do You Or Have You Ever Used E-cigarettes Or Vape? Never Used Electronic Cigarettes [email or web address] Information not available 04/01/2020 What Was The Date Of Your Most Recent Tobacco Screening? 01/14/2017 Information not available 11/13/2018 Do You Or Have You Ever Used Smokeless Tobacco? Never Used Smokeless Tobacco [email or web address] Information not available 04/01/2020 How Much Tobacco Do You Smoke? No [email or web address] Information not available 04/01/2020 Sex: Unknown Functional Status None recorded. Mental Status None recorded. Family History Relationship Description Onset Age of this Age Resolved Age Notes LastModified by Organization Details LastModified Time Father No current problems or disability sbm Not available 01/14 17:58:20 Mother No current problems or disability sbm Not available 01/14 17:58:20 Medical History Condition Response Coronary Artery Disease N Anxiety/Depression N Gout N Blood Transfusion N Hernia N COPD N Pacemaker N Orthotics N Arthritis N Blood Clot N Cancer N Stroke N High Cholesterol N Liver Disease N Rheumatoid Arthritis N Kidney Disease N Heart Problems N Migraines N Thyroid Problems N Anemia N Heart Attack ([place]) N Ulcers N Diabetes N Bleeding Disorder N Seizures/Epilepsy N Tuberculosis N AIDS/HIV N Asthma N Peripheral Vascular Disease N Hepatitis N Pulmonary Embolism N Hypertension N Osteoporosis N Past Encounters Encounter ID Performer Location Encounter Start Date Encounter Closed Date Diagnosis/Indication Diagnosis SNOMED-CT Code Diagnosis ICD10 Code Diagnosis Note [id number] Igor Qiu MD OFFICE [address], [address] [place] [address] 01/14/2017 15:26:53 01/17/2017 13:56:59 [id number] Igor Qiu MD OFFICE [address], [address] [place] [address] 03/24/2018 08:47:30 04/07/2018 18:42:58 [id number] Igor Qiu MD [facility] [address] [place] [address] 01/15/2020 07:58:23 01/15/2020 13:22:05 [id number] MD Kiran Coelho h [address] [place] [address] 04/01/2020 09:03:07 04/01/2020 15:12:55 Health Concerns Section Related Observation LastModified by Organization Detai ls LastModified Time None Recorded Concern Status LastModified by Organization Details LastModified Time None Recorded Advance Directives Directive None Recorded Payers Encounter Date Sequence Insurance Name Policy Number Policy Grider Covered Member ID Grider Member ID Guarantor Name 01/14/2017 1 [place] [facility] [id number] Michelle Zazueta [id number] 28 [facility] 03/24/2018 1 [place] [facility] ([facility] [id number] Michelle Zazueta [id number] 28 Frankie [facility] 01/15/2020 1 [place] [facility] [employer] ([facility]) [id number] Michelle Zazueta [id number] 28 Frankie [facility] 04/01/2020 1 [place] [facility] ([facility] [id number] Michelle Zazueta [id number] 28 [address] [facility] Notes Date Note Type Note Provider Name and Address Organization Details Recorded Time 01/14/2017 text/html Hip(s) AthenaReported bypatient.Location:l eft; groin; thigh; buttocks Severity:moderate; varies from none to severe Alleviating Factors:rest Aggravating Factors:walking; exercise Associated Symptoms:no weakness; no numbness; no tingling; no swelling; no redness; no warmth; no ecchymosis; no catching/locking; no popping/clicking; no buckling; no grinding; no instability; no radiation down leg; no drainage; no fever; no chills; no weight loss; no change in bowel/bladder habits Prior Imaging:x ray Previous PT:did not help Igor Qiu MD [address] [facility] [address], [place], [address], [place] [facility] 01/14/2017 18:01:16 03/24/2018 text/html Hip(s) AthenaReported bypatient.Location:l eft Severity:no pain Alleviating Factors:rest Aggravating Factors:exercise Associated Symptoms:no weakness; no numbness; no tingling; no swelling; no redness; no warmth; no ecchymosis; no catching/locking; no popping/clicking; no buckling; no grinding; no instability; no radiation down leg; no drainage; no fever; no chills; no weight loss; no change in bowel/bladder habits Prior Imaging:x ray; CT scan Previous PT:helped ivonne Qiu MD [address],[facility] [address], [place], [address], [place] [facility] 03/24/2018 12:30:09 01/15/2020 text/html Hip(s) AthenaReported bypatient.Location:r ight; groin; thigh Severity:moderate Alleviating Factors:rest Aggravating Factors:walking; weightbearing; exercise; going from sit to stand Associated Symptoms:no weakness; no numbness; no tingling; no swelling; no redness; no warmth; no ecchymosis; no catching/locking; no popping/clicking; no buckling; no grinding; no instability; no radiation down leg; no drainage; no fever; no chills; no weight loss; no change in bowel/bladder habits Prior Imaging:x ray; CT scan Previous PT:helped a tori Qiu MD [address],[facility] [address], [place], [address], [place] [facility] 01/15/2020 11:25:35 04/01/2020 text/html Hip(s) AthenaReported bypatient.Location:r ight; groin Severity:mild Alleviating Factors:rest Aggravating Factors:weightbearin g; exercise Associated Symptoms:no weakness; no numbness; no tingling; no swelling; no redness; no warmth; no ecchymosis; no catching/locking; no popping/clicking; no buckling; no grinding; no instability; no radiation down leg; no drainage; no fever; no chills; no weight loss; no change in bowel/bladder habits Prior Imaging:x ray; CT scan Previous PT:helped significantly Igor Qiu MD [address] [place] [address],[facility] [address], [place], [address], [place] [facility] 04/01/2020 13:07:45
== END 2024-07-02 10:13 | disposition home or self-care (01) ==
LOC: HO.HUSH 09:27
PROVIDERS: PCP Family Medicine; Visit Provider Nurse Practitioner Family
DX: N52.9 Male erectile dysfunction, unspecified (principal); R79.89 Other specified abnormal findings of blood chemistry
CPT/HCPCS: 99212

== ENCOUNTER 2024-07-07 07:42 | Outpatient (AMB) | payer BC, SELFPAY ==
--- NOTE | 2024-07-07 07:40 | A.OFFVIS_ITS ---
Intake Visit Reasons: 6M follow up/ lab results Intake Note: Patient is Present for Telephone Follow Up lab Urology Med:Testosterone, Sildenafil Antibiotic Allergy:None Blood Thinner: None Cork Insulation Setter Required: No Accompanied by: Self / Same As Patient Allergies No Known Allergies [No Known Allergies*] Allergy (Verified 07/02/24 09:31) Medication List - Last Reconciled 07/07/24 by JERSEY Nowak lorazepam mg PO meloxicam 7.5 mg PO BID tadalafil (Cialis) 5 mg PO DAILY 90 days testosterone 2 pumps topical DAILY 28 days HPI Comments Details: Frankie is a 73 year old male patient of Dr. Hand. He is being follow- up on today via video telehealth for his hypogonadism and erectile dysfunction. In discussion with the patient today he reports to be doing and feeling well. He discusses his upcoming vacation. Of note, patient was seen last week however labs were not obtained therefore follow-up appointment was made today to review hypogonadism labs. Testosterone remains pending however PSA as well as CBC were reviewed with the patient today. When asked he currently denies any bothersome urinary issues or concerns. He reports compliance with testosterone as prescribed. He also reports to be taking Cialis 5 mg however not always daily as prescribed. We discussed importance of lifestyle modifications to assist with ED. he discusses his frustration regarding labs prior to appointment. Fax number was reviewed [phone]. Labs are as follows: Testosterone: 12/13 606, 07/14 pending Free testosterone 12/13 17.7, 07/14 pending PSA 12/13 1.2, 07/14 1.5 Hemoglobin/Hematocrit: 12/13 15.6/46.7, 07/14 15.3/44.1 We discussed importance of obtaining labs in relation to testosterone therapy. He otherwise offers no other issues or concerns at this time [facility] Medical History Erectile dysfunction Hypogonadism in male Surgical History History of surgery Review of Systems Const Reports as per HPI Eyes Reports no additional complaints ENT Reports no additional complaints Card Reports no additional complaints Resp Reports no additional complaints GI Reports no additional complaints Reports as per HPI Musc Reports no additional complaints Neuro Reports no additional complaints Psych Reports as per HPI Endo Reports no additional complaints Edmund/Lymph Reports no additional complaints Aller/Immun Reports no additional complaints Physical Exam Const General: cooperative, comfortable, no acute distress, well developed, alert and awake Resp Effort & Inspection: normal respiratory effort and able to speak in complete sentences Psych Appearance: grossly normal and well kempt Speech and movement: Clear speech present Attitude: cooperative Thought content: Normal thought content present Insight: Fair insight present (Psych) Judgement: Fair judgement present (Psych) Telehealth Telehealth Telehealth Platform: Telephone Location of provider rendering services: practice address Location of patient: address on file Patient Identification confirmed using: Name, : Yes Telehealth method: video Patient verbally consented to treatment: Yes Patient verbally consented to billing insurance company: Yes Patient informed of any privacy concerns related to visit: Yes Minutes spent on Phone/Video with Pt.: 15 Assessment & Plan Assessment & Plan (1) Low testosterone: Code(s): R79.89 - Other specified abnormal findings of blood chemistry Category: Medical (2) Erectile dysfunction: Code(s): N52.9 - Male erectile dysfunction, unspecified Category: Medical Plan Recent CBC and PSA results reviewed with the patient today; as noted above Testosterone remains pending; will await results We discussed compliance with appointments as well as obtaining labs prior to appointment. Continue testosterone Continue Cialis as discussed and prescribed. Patient currently denies any bothersome urinary issues. Reports be happy with current voiding parameters. Follow-up in 6 months with CBC, testosterone, and PSA to be completed prior; or sooner with any issues, concerns, and or questions. Orders: Orders Testosterone, Free/Total 6 Months N52.9 - Male erectile dysfunction, unspec ified, R79.89 - Other specified abnormal findings of blood chemistry Prostate Specific Antigen 6 Months N52.9 - Male erectile dysfunction, unspecified, R79.89 - Other specified abnormal findings of blood chemistry Complete Blood Count no Diff 6 Months E29.1 - Testicular hypofunction Medications: Refilled testosterone apply 1 pump amount over max area of EACH upper arm and shoulder 2 pumps topical DAILY 75 grams 5RF 28 days R79.89 - Other specified abnormal findings of blood chemistry Coding Level of Care Code Tele Est Pt Level 3 (92158) Diagnoses Low testosterone R79.89 Erectile dysfunction N52.9
--- OUTSIDE RECORDS SUMMARY | 2024-07-07 07:45 | XMS_ITS | Data Portability ---
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 Plan of Treatment Reminders Order Date Submit Date Provider Last Modified By Organization Details Last Modified Time Details Appointments None recorded. Lab None recorded. Referral physical therapist referral - S/P Arthroscop ic Cuff Repair-Lef t shoulder 2023 024 [email or web address] Urrutia [facility], [address] [facility], [facility], [place], [address], 4 17:22:00 physical therapist referral - LEFT SAD RCR 08/02/232023 024 alozno Urrutia [facility], [address] [facility] [address], [place], [address], 4 18:07:37 Procedures None recorded. Surgeries None recorded. Imaging None recorded. Medication Orders meloxicam 7.5 mg tablet 2023 024 ighobrial [facility], [address] [place], [address], 4 17:22:00 meloxicam 7.5 mg tablet 2023 024 [email or web address] [facility], [address] [place], [address], 4 08:13:02 Patient TargetsNo targets recorded. Patient InstructionsNo instructions recorded. Reason for Referral Physical Therapist Referral for Shoulder pain POST OP REHAB LEFT SAD RCR 08/02/23 IF BICEP TENODESIS: NO ACTIVE ELBOW FLEXION X 3WEEKS NO RESISITED ELBOW FLEXION X 8 WEEKS Referring Physician: Carola Mandel, Physician File Keeper, Encounter Date: 08/12/2023 Physical Therapist Referral for [...] w/o contr roge Lopez in [facility] Access ion Number : [id number] Patijuan diego t [facility] Record Number : [id number] Date of : 1950 Date of Exam: 2023 Referr ing Physic lambert: Carola Lisa [facility] [address] [place] [address] Exam: MR Should er (C-) CPT 81826 - Left Room Descri ption: Freddy Siem [...] Electr onical ly Signed By: Darryl Echavarria [facility] ([facility] [address] [facility], [place], [address], 05/30/2023 14:17:40 05/20/19 24 05/17/2023 YASHIRA, alee weiner, w/o hanh [facility] in [facility] Access ion Number : [id number] Nirav noyola Name: Frankie Hadley Record Number : [id number] Date of : 1950 Date of Exam: 2023 Referr ing Physic lambert: Carola Lisa [facility] [address] [facility] [place], [place] [address] Exam: MR Should er (C-) CPT 98450 - Right Room Descri ption: Freddy Siem Espr 1.5 MR Should er (C-) CPT 95181 CLINIC [place] HISTOR Y: Pain in right [...] Electr onical ly Signed By: Darryl Echavarria [facility] ([facility]) [address] [place] [address], [address], 05/30/2023 14:17:06 Result Notes None recorded. 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 541562874983 1 Active 2017 [place] Gutierrez [facility] 3 09:49:02 Partial thickness rotator cuff tear 177084634 Active 2017 [place] Gutierrez [facility] 3 09:49:02 Triggering of digit 811474155 Active 2017 Kely clrak [facility] 3 09:49:02 Chronic low back pain 217260943 Active 2021 Kely clark, [facility] 3 09:49:02 Patient encounter status 637578512 Active 2017 Kelybrenden clark [facility] 3 09:49:02 Pain in right hip joint 195553987269 102 Active 2019 Kelybrenden clark [facility] 3 09:49:02 Osteoarthr itis of left hip joint 877459314888 108 Active 2017 Kely Chapo clark [facility] 3 09:49:02 Osteoarthr itis of right hip joint 790104690304 107 Active 2019 Kely Chapo clark [facility] 3 09:49:02 Dyslipidem ia 844885639 Active 2017 Kelybrenden clark [facility] 3 09:49:02 Advice given 733945869 [facility] 09:49:02 Psychophys iologic insomnia 048033094 Active 2022 Kely Chapo clark [facility] 3 09:49:02 Preprocedu ral examinatio n done 685283395727 104 Active 2018 Kely Chapo clark [facility] 3 09:49:02 Strain of hamstring muscle 919394008693 Active 2017 Kely Chapo clark [facility] 3 09:49:02 Anxiety 61630485 Active 2022 Kely Chapo clark [facility] 3 09:49:02 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 02299925 Active 2019 Kely clark [facility] 3 09:49:02 Obstructiv e sleep apnea syndrome 02202162 [facility] 09:49:02 Hiatal hernia 81249443 Active 2017 Kely Cowan [facility] 3 09:49:02 Erectile dysfunctio n 706927170 Active 2018 Kley Cowan [facility] 3 09:49:02 Tick bite 07885400 Active 2020 Kely Smith [facility] 3 09:49:02 Strain of rotator cuff of shoulder 373746194 Active 2023 Alexandrea Rigoberto [facility] 4 15:02:58 Non-trauma tic partial tear of left rotator cuff 983596841157 9103 Active 2023 Tomasa Tanner [facility] 4 13:23:56 Strain of right hamstring muscle Active 2017 [facility] 4 13:23:56 Rupture of tendon of biceps 089767915 Active 2023 [facility] 4 13:23:56 Problem Notes None recorded. Procedures Surgical History Date Name Laterality Status Provider Name and Address Organization Details Recorded Time 08/02/19 24 Orthopaedic Surgery completed Mohinder Gates [facility] 08/12/2023 15:07:12 02/08/20 20 Other completed Andrew Mendieta [facility] 03/05/2023 14:56:13 07/11/19 19 Orthopaedic Surgery completed Benjamin Darling [facility] 07/18/2018 11:47:01 04/22/19 18 Orthopaedic Surgery completed Jacy Murguia [facility] 06/12/2018 12:04:35 04/22/19 05 Orthopaedic Surgery completed Megan Joiner [facility] 11/01/2016 09:28:23 04/22/18 85 Orthopaedic Surgery completed Megan Davenportdonovan [facility] 11/01/2016 09:28:12 04/22/18 75 Other completed Megan Davenportleroyvin [facility] 11/01/2016 09:27:59 Imaging Results Imaging Date Name Status LastModified by Organiz ation Details LastModified Time 05/17/2023 MRI, shoulder, w/o contrast completed [facility] [address] [place], [address], 05/30/2023 14:17:40 05/17/2023 MRI, shoulder, w/o contrast completed [facility] ([facility]) [address] [place], [address], 05/30/2023 14:17:06 Procedure Notes None recorded. Medical Equipment None Reported. Allergies Allergen ID Allergen Name Allergen Category Reaction Reaction Severity Criticality Documentation Date Start Date Code Code System Note Provider Name and Address Organization Details Recorded Time No known allergy (situatio n) Not available Not available Not available Not available 02/11/2023 91157 6003 SNOMED Courtney Cowan [facility] 09:48:54 No known drug allergies Medications Name [...] Updated DateTime 05/30/2023 185.42 cm Adelina Jensen [facility] 05/30/2023 14:35:38 Date Recorded Body height Body mass index (BMI) Body weight Provider Name and Address Organization Details Last Updated DateTime 09/12/2023 185.42 cm 28.4 kg/m2 28136.36 g Tomasa Tanner [facility] 09/12/2023 13:24:13 Date Recorded Body height Body mass index (BMI) Body weight Provider Name and Address Organization Details Last Updated DateTime 11/21/2023 185.42 cm 28.4 kg/m2 82389.36 g Daniel Whitehead [facility] 11/21/2023 15:32:16 Date Recorded Body height Body mass index (BMI) Body weight Provider Name and Address Organization Details Last Updated DateTime 03/05/2024 185.42 cm 28.4 kg/m2 58760.36 g Daniel Whitehead [facility] 03/05/2024 11:16:13 Social History Question Answer Notes LastModified by Organizat ion Details LastModified Time Tobacco Smoking Status Former Smoker quit 16 years ago Daniel clark [facility] 03/05/2024 11:16:18 What Is Your Level Of [...] Or Have You Ever Used Smokeless Tobacco? [id number] Information not available 03/05/2023 How Much Tobacco [...] Time Father No current problems or disability [email or web address] Not available 12:04:01 Mother No current problems or disability [email or web address] Not available 12:04:01 Medical History Condition Response [...] Asthma / Shortness of Breath / Sleep Lead Massage Therapist ea (please specify) N Pulmonary Embolism N Immunizations Vaccine Type Date Status Note Provider Nam e and Address Organization Details Recorded Time Influenza, adjuvanted, trivalent, PF 0 completed Kely clark, [facility] 02/11/2023 09:49:14 Influenza, high-dose, quadrivalent, PF 2 completed Kely clark, [facility] 02/11/2023 09:49:14 COVID-19, mRNA, LNP-S, PF, 100 mcg/0.5mL dose or 50 mcg/0.25mL dose 1 completed Kely clark, [facility] 02/11/2023 09:49:14 COVID-19, mRNA, LNP-S, PF, 100 mcg/0.5mL dose or 50 mcg/0.25mL dose 1 completed Kely clark, [facility] 02/11/2023 09:49:14 COVID-19, mRNA, LNP-S, bivalent, PF, 50 mcg/0.5 mL or 25mcg/0.25 mL dose 2 completed Kely clark, [facility] 02/11/2023 09:49:14 pneumococcal polysaccharide PPV23 0 completed Kely clark, [facility] 02/11/2023 09:49:14 influenza, unspecified formulation 0 completed Kely clark, [facility] 02/11/2023 09:49:14 Tdap 9 completed Kely clark, [facility] 02/11/2023 09:49:14 Pneumococcal conjugate PCV 13 2 completed Kely clark, [facility] 02/11/2023 09:49:14 Td (adult), 2 Lf tetanus toxoid, preservative free, adsorbed 1 completed Kely clark, [facility] 02/11/2023 09:49:14 Past Encounters Encounter ID Performer Location Encounter Start Date Encounter Closed Date Diagnosis/Indication Diagnosis SNOMED-CT Code Diagnosis ICD10 Code Diagnosis Note [id number] YOEL BARROS MD [facility] Office [address] [facility] [place] [address] 11/01/2016 09:21:45 11/01/2016 10:26:46 Ankle instability 464114 M25.371 Osteoarthritis 723873589 M19.171 Abnormal gait 98629373 R 26.9 Muscle atrophy 36447037 M62.561 [id number] ELENO OROURKE [facility] Office [address] [place] [address] 05/02/2018 12:59:23 05/02/2018 13:50:54 Bursitis of right shoulder 8242428041 01456 M75.51 Shoulder pain 23836502 M 25.511 Strain of rotator cuff capsule 30783783 S46.011A [id number] ESTEFANÍA GUEVARA MD [address] [address] 06/12/2018 11:46:02 06/12/2018 12:34:25 Bursitis of right shoulder 9795551979 42173 M75.51 Osteophyte of bone 57546 01729 77871 M25.711 Strain of rotator cuff capsule 51931138 S46.011A [id number] ELENO OROURKE [facility] Office [address] [address] 07/18/2018 11:23:14 07/18/2018 12:15:12 Shoulder pain 92084036 M25.511 Strain of rotator cuff capsule 63693622 S46.011D [id number] ESTEFANÍA GUEVARA MD [facility] Office [address] [place] [address] 08/14/2018 11:36:09 08/14/2018 13:10:47 Localized, primary osteoarthritis of the shoulder region 326014054 M19.011 Bicipital tenosynovitis 66086969 M75.21 Bursitis o f right shoulder 1614943202 55446 M75.51 Impingemen t syndrome of right shoulder region 9390967464 25338 M75.41 Shoulder pain 69334933 M 25.511 Strain of rotator cuff capsule 32909503 S46.011D [id number] ESTEFANÍA GUEVARA MD [facility] Office [address] [place] [address] 09/25/2018 11:31:18 09/25/2018 12:00:58 Bursitis of right shoulder 8462024544 36847 M75.51 Impingemen t syndrome of right shoulder region 1118154369 39563 M75.41 Strain of rotator cuff capsule 55776728 S46.011D [id number] ESTEFANÍA GUEVARA MD [address] [address] 11/27/2018 14:03:01 11/27/2018 16:05:46 Bursitis of right shoulder 8406767515 02193 M75.51 Shoulder pain 45186184 M 25.511 Strain of rotator cuff capsule 53299893 S46.011D [id number] ELENO OROURKE [address] [address] 02/11/2023 09:10:56 02/11/2023 10:15:22 Bursitis of left shoulder 1789900309 43211 M75.52 Impingemen t syndrome of left shoulder region 8577481099 08310 M75.42 Pain of le ft shoulder joint 6827413430 9116603 M25.512 Rupture of rotator cuff of left shoulder 3586783508 4883786 M75.102 Strain of muscle of left shoulder 9520726424 9132654 S46.912A [id number] ESTEFANÍA GUEVARA MD [facility] Office [address] [address] 03/05/2023 14:49:58 03/05/2023 16:50:19 Strain of rotator cuff of shoulder 280087577 S46.012A [id number] Deja Jansen [address] [address] 04/29/2023 09:41:07 04/29/2023 14:50:01 Bursitis of right shoulder 9078420824 00697 M75.51 Bursitis o f left shoulder 7039892792 27280 M75.52 Bilateral impingement syndrome of shoulders 0313808376 5336998 M75.41 M75.42 Shoulder pain 48931835 M 25.512 M25.920 [id number] ESTEFANÍA GUEVARA MD [address] [address] 05/30/2023 14:03:55 05/30/2023 18:27:08 Strain of rotator cuff of shoulder 925426783 S46.012A [id number] ELENO OROURKE [facility] Office [address] [place] [address] 08/12/2023 14:40:08 08/12/2023 15:14:49 Rupture of rotator cuff of right shoulder 8596840685 1007638 M75.101 Shoulder pain 65807689 M 25.904 [id number] ESTEFANÍA GUEVARA MD [address] [address] 09/12/2023 09:06:19 09/12/2023 17:29:49 Strain of rotator cuff of shoulder 508310999 S46.011D [id number] ESTEFANÍA GUEVARA MD [facility] Office [address] [place] [address] 11/21/2023 15:20:40 11/21/2023 16:06:40 Shoulder pain 01395815 M25.512 Tendinitis of left shoulder 8411288324 001302 M75.92 Pain of le ft shoulder joint 5392614668 2487529 M25.512 Strain of rotator cuff of shoulder 010246507 S46.011D [id number] ESTEFANÍA GUEVARA MD [facility] Office [address] [place] [address] 03/05/2024 11:00:03 03/05/2024 11:33:05 Strain of rotator cuff of shoulder 905360741 S46.012A Health Concerns Section Related Observation LastModified by Organization Detai ls LastModified Time None Recorded Concern Status LastModified by Organization Details LastModified Time None Recorded Advance Directives Directive None Recorded Payers Encounter Date Sequence Insurance Name Policy Number Policy Grider Covered Member ID Grider Member ID Guarantor Name 05/30/2023 1 [place] [facility] [id number] Michelle Zazueta [id number] 08/12/2023 1 [place] [facility] [employer] ISABELA ([facility] [id number] Michelle Zazueta [id number] Frankie [facility] 09/12/2023 1 [place] [facility] ([facility] [id number] Michelle Zazueta [id number] [facility] 11/21/2023 1 [employer] [facility] ([facility] [id number] Michelle Zazueta [id number] 28 Frankie Hadley 03/05/2024 1 [employer] ([facility] [id number] Michelle Zazueta [id number] 28 [facility] Notes Date Note Type Note Provider [...] debridement, decompression, cuff repair ESTEFANÍA GUEVARA MD [address] [place] [address], [phone], [facility] 07/03/2023 08:19:47 08/12/2023 text/html Frankie presents today [...] [address] Guevara. ELENO OROURKE [address] [place] [address], [phone], [facility] 08/14/2023 17:02:09 09/12/2023 text/html Dany has reached via telehealth. This visit was conducted as a real time interactive TeleHealth audio & visual via [employer]. The patient was identified by name and date of and consented to this TeleHealth visit. The patient was at their home in [place] and I was at my [place] office. Participants of the telehealth visit included [...] physical therapy. Back in 6 weeks. A [id number] encounter. ESTEFANÍA GUEVARA MD [address] [place] [address], [phone], [facility] 09/13/2023 09:43:12 11/21/2023 text/html Frankie Hadley come s in today, 2-1/2 months out, doing okay. He posturally has some issues where he has to get his scapula back around. He has full motion. Says he does not have much pain. So, continue therapy. Back in 2 months. ESTEFANÍA GUEVARA MD [address] [place] [address], [phone], [facility] 11/22/2023 08:05:43 03/05/2024 text/html Frankie comes in today working hard in his therapy course postoperatively, getting better all the time, but still has some issues with repetitive abduction. He is doing more yard work and things like that which I think is extremely beneficial, so continue that back in 2 months. ESTEFANÍA GUEVARA MD [address] [place] [address], [phone], [facility] 03/06/2024 08:18:26
--- OUTSIDE RECORDS SUMMARY | 2024-07-07 07:45 | XMS_ITS | Data Portability ---
Author Organization [place] - [facility], OFFICE Address [address], [facility] [address] [place] [id number] Assessment Encounter Date Assessment Date Assessment LastModified [...] 04/01/2020 09:08:22 Appendectomy completed Igor Qiu MD [address] [place] [address],[address], [place], [address], [place] [facility] 01/14/2017 17:58:55 Knee Surgery completed Igor Qiu MD [address], [place], [address], [place] [facility] 01/14/2017 17:59:12 total replacement of left hip joint completed Igor Qiu MD [address], [place], [address], [place] [facility] 01/15/2020 [...] Updated DateTime 01/14/2017 185.42 cm 27.2 kg/m2 44898.03 g Marylin Amaya [place] - [facility] 01/14/2017 15:55:32 Date Recorded Systolic blood pressure Diastolic blood pressure Provider Name and Address Organization Details Last Updated DateTime 01/14/2017 120 mm[Hg] 86 mm[Hg] Igor Qiu MD [address] [place] [address],[address], [place], [address], [place] [facility] 01/14/2017 17:22:03 Date Recorded Body height Body mass index (BMI) Body weight Systolic blood pressure Diastolic blood pressure Provider Name and Address Organization Details Last Updated DateTime 03/24/2018 185.42 cm 27 kg/m2 89203.44 g 124 mm[Hg] 77 mm[Hg] Marylin Amaya [place] - [facility] 8 09:04:11 Social History Question Answer Notes LastModified by Organizat ion Details LastModified Time Tobacco Smoking Status Former Smoker Igor Qiu MD [address], [place], [address], [place] [facility] 01/14/2017 17:58:24 Do You Or Have You Ever Used E-cigarettes Or Vape? Never Used Electronic Cigarettes [email or web address] Information not available 04/01/2020 What Was The Date Of Your Most Recent Tobacco Screening? 01/14/2017 Information not available 11/13/2018 Do You Or Have You Ever Used Smokeless Tobacco? Never Used Smokeless Tobacco [email or web address] Information not available 04/01/2020 How Much Tobacco Do You Smoke? No [email or web address] Information not available 04/01/2020 Sex: Unknown Functional [...] Thyroid Problems N Anemia N Heart Attack ([place]) N Ulcers N Diabetes N Bleeding Disorder N Seizures/Epilepsy N Tuberculosis N AIDS/HIV N Asthma N Peripheral Vascular Disease N Hepatitis N Pulmonary Embolism N Hypertension N Osteoporosis N Past Encounters Encounter ID Performer Location Encounter Start Date Encounter Closed Date Diagnosis/Indication Diagnosis SNOMED-CT Code Diagnosis ICD10 Code Diagnosis Note [id number] Igor Qiu MD OFFICE [address], [address] [place] [address] 01/14/2017 15:26:53 01/17/2017 13:56:59 [id number] Igor Qiu MD OFFICE [address], [address] [place] [address] 03/24/2018 08:47:30 04/07/2018 18:42:58 [id number] Igor Qiu MD [facility] [address] [place] [address] 01/15/2020 07:58:23 01/15/2020 13:22:05 [id number] MD Kiran Coelho h [address] [place] [address] 04/01/2020 09:03:07 04/01/2020 15:12:55 Health Concerns Section Related Observation LastModified by Organization Detai ls LastModified Time None Recorded Concern Status LastModified by Organization Details LastModified Time None Recorded Advance Directives Directive None Recorded Payers Encounter Date Sequence Insurance Name Policy Number Policy Grider Covered Member ID Grider Member ID Guarantor Name 01/14/2017 [place] [facility] [id number] Michelle Zazueta [id number] [facility] 03/24/2018 1 [place] [facility] [id number] iMchelle Zazueta [id number] 28 [facility]ie [facility] 01/15/2020 1 [place] [facility] [employer] [place] [facility] [id number] Michelle Zazueta [id number] [facility]ie [facility] 04/01/2020 1 [place] [facility] [id number] Michelle Zazueta [id number] Frankie [facility] Notes Date Note Type Note Provider [...] PT:did not help Igor Qiu MD [address] [facility] [address], [place], [address], [place] [facility] 01/14/2017 [...] Previous PT:helped ivonne Qiu MD [address],[facility] [address], [place], [address], [place] [facility] nstrctive Surgry 03/24/2018 [...] PT:helped a tori Qiu MD [address],[facility] [address], [place], [address], [place] [facility] 01/15/2020 [...] scan Previous PT:helped significantly Igor Qiu MD [address] [place] [address],[facility] [address], [place], [address], [place] [facility] 04/01/2020 13:07:45
== END 2024-07-07 08:06 | disposition home or self-care (01) ==
LOC: HO.HUSH 07:42
PROVIDERS: PCP Family Medicine; Visit Provider Nurse Practitioner Family
DX: R79.89 Other specified abnormal findings of blood chemistry (principal); N52.9 Male erectile dysfunction, unspecified
CPT/HCPCS: 99213

== ENCOUNTER → 2024-07-07 07:42 | Outpatient (BNVA) | payer BC, SELFPAY | PROVIDERS: PCP Family Medicine; Visit Provider Nurse Practitioner Family ==

== ENCOUNTER 2024-12-22 07:23 | Outpatient (AMB) | payer BC, SELFPAY ==
--- NOTE | 2024-12-22 07:24 | A.OFFVIS_ITS ---
Intake Visit Reasons: 6M follow up/ lab results Intake Note: Patient is Present for Telephone Follow Up lab Urology Med:Testosterone, Sildenafil Antibiotic Allergy:None Blood Thinner: None Labs done 11/23/24 : PSA 1.40, %Fr Testosterone 80.2, Total Testosterone 394 Bleacher Operator Required: No Accompanied by: Self / Same As Patient Allergies No Known Allergies (No Known Allergies*) Allergy (Verified 12/22/24 07:26) HPI Comments Details: Frankie is a 73 year old male patient of Dr. Hand. He seen for the following urologic conditions - erectile dysfunction - low testosterone Telemedicine Evaluation 15 min Consultation [employer] Jarrett Video Emphasized the importance of tadalafil daily Refill prescription Testosterone running at lower end of range. Recommendation to apply. Six-month follow-up office Low testosterone Testosterone: 12/13 606, 07/14 380, 12/14 390 Free testosterone 12/13 17.7, 07/14 , 12/14 80 PSA 12/13 1.2, 07/14 1.5, 12/14 1.4 Hemoglobin/Hematocrit: 12/13 15.6/46.7, 07/14 15.3/44.1 , We discussed importance of obtaining labs in relation to testosterone therapy. He otherwise offers no other issues or concerns at this time REPLACED BY [facility] Medical History Erectile dysfunction Hypogonadism in male Surgical History History of surgery Review of Systems Const All systems reviewed & are unremarkable except as noted in HPI and below Reports no additional complaints Resp Reports no additional complaints GI Reports no additional complaints Reports as per HPI Musc Reports no additional complaints Physical Exam Telemedicine evaluation Appropriate responses Regular breathing rate and rhythm HEENT Head: Yes normal to inspection Ears: hearing grossly normal bilaterally Eyes General: appearance normal, both eyes and all related structures Neck Neck: Yes normal visual inspection Chest Chest palpation & inspection: normal inspection of the chest Resp Effort & Inspection: normal respiratory effort and able to speak in complete sentences Telehealth Telehealth Telehealth Platform: [employer] Location of provider rendering services: practice address Location of patient: address on file Patient Identification confirmed using: Name, : Yes Telehealth method: video Patient verbally consented to treatment: Yes Patient verbally consented to billing insurance company: Yes Patient informed of any privacy concerns related to visit: Yes Minutes spent on Phone/Video with Pt.: 15 Assessment & Plan Assessment & Plan (1) Erectile dysfunction: Code(s): N52.9 - Male erectile dysfunction, unspecified Category: Medical (2) Low testosterone: Code(s): R79.89 - Other specified abnormal findings of blood chemistry Category: Medical Plan Six-month follow-up office Orders: Orders Prostate Specific Antigen 5 Months R7. - Other specified abnormal findings of blood chemistry Testosterone, Free/Total 5 Months R7. - Other specified abnormal findings of blood chemistry Hematocrit 5 Months R7. - Other specified abnormal findings of blood chemistry Medications: Refilled testosterone apply 1 pump amount over max area of EACH upper arm and shoulder 2 pumps topical DAILY 75 grams 5RF 28 days R7. - Other specified abnormal findings of blood chemistry Patient Instructions: This note is constructed using voice recognition software. While every effort has been made to ensure accuracy flotation tender errors may have been included. Imaging studies, laboratory and physical exam results were discussed and reviewed in detail. No major barriers to patient understanding were identified. An opportunity to ask questions regarding the treatment plan was provided. All q uestions were answered. The patient expressed understanding and agreement with the above treatment plan. The patient is aware they should contact our office by phone for worsening of their current condition or the appearance of new urologic symptoms. Compliance is encouraged with any medications and followup testing that is ordered. It is a privilege to participate in the urologic care of your patient. If you have any questions or concerns regarding treatment for the above conditions, or other urologic issues, please do not hesitate to contact me. The office telephone contact is [phone]. Sincerely, Dr Carrillo Miguel MD, [facility] - Urology Compassionate Specialist Care for the Genitourinary System Coding Level of Care Code Tele Est Pt Level 3 (04086) Complex EM visit Add On G2211 Diagnoses Erectile dysfunction N52.9 Low testosterone R79.89
--- OUTSIDE RECORDS SUMMARY | 2024-12-22 07:26 | XMS_ITS | Encounter Summary ---
Author Organization [facility] Address [address] [place] [address] Phone Care Team Providers Care Telephone Station Repairer Name Role Phone Ren Hand DO Unavailable Ren Hand DO Primary Care Provider [phone] Ren Hand DO Unavailable Encounter Details Date Type Department Care Team (Latest Contact Info) Description 05/08/2019 Transcribe Orders [facility] [address] [place] [address] Sal Solorio MD [address] [place] [address] 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sm (Primary Dx) Social History Tobacco Use Types Packs/Day Years Used Date Smoking Tobacco: Former Cigarettes 0.5 3 Smokeless Tobacco: Never Alcohol Use Standard Drinks/Week Comments Yes 0 (1 standard drink = 0.6 oz pur e alcohol) rare Sex and Gender Information Value Date Recorded Sex Assigned at Not on file Legal Sex Male 9:58 PM EDT Gender Identity Not on file Sexual Orientation Not on file 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 Not on file Not on file documented as of this encounter Plan of Treatment Upcoming Encounters Date Type Department Care Team (Late st Contact Info) Description 04/09/2025 9:45 AM EST Office Visit [facility] [address] [place] [address] Ren Hand DO [address] [place] [address] [email or web address] documented as of this encounter Results * Testosterone, total (05/08/2019 10:24 AM EST) TESTOSTERONE 333 249 - 836 ng/dL [facility] Blood 05/08/2019 10:2 4 AM EST 05/08/2019 2:43 PM EST us Sal Solorio MD LAB BLOOD ORDERABL ES Final Result [facility] [address] [place] [address] documented in this encounter Visit Diagnoses Diagnosis 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sm- Primary Other testicular hypofunction documented in this encounter Additional Health Concerns Assessment Noted Time PHQ-2 Depression Total Score: 2 06/21/19 18 9:44 AM EST documented as of this encounter Care Teams Telephone Station Repairer Relationship Specialty Start Date End Date Ren Hand DO [address] [place] [address] [email or web address] PCP - General 04/25/17 Ren Hand DO [address] [place] [address] [email or web address] Historical LMR Provider 02/04/17 Ren Hand DO [address] [place] [address] [email or web address] Insurance Assigned Provider 07/27/23 documented as of this encounter Additional Source Comments The information contained in this document represents components of the legal health record. It is not the complete legal health record.[facility]
--- OUTSIDE RECORDS SUMMARY | 2024-12-22 07:26 | XMS_ITS | Encounter Summary ---
Author Organization [facility] Address [address] [place] [address] Phone Care Team Providers Care Shuttle Filler Name Role Phone Ren Hand DO Unavailable Ren Hand DO Primary Care Provider [phone] Ren Hand DO Unavailable Reason for Visit * Reason Onset Date Comments Referral 10/01/2024 [facility] Encounter Details Date Type Department Care Team (Late st Contact Info) Description 10/01/2024 Telephone [facility] [address] [id number] Ren Hand DO [address] [place] [address] [email or web address] Referral ([facility]) Social History Tobacco Use Types Packs/Day Years Used Date Smoking Tobacco: Former Cigarettes 0.5 3 Smokeless Tobacco: Never Alcohol Use Standard Drinks/Week Comments Yes 0 (1 standard drink = 0.6 oz pur e alcohol) rare Child or Family Care Answer Date Record ed Do you have problems with on e of the following making it difficult for you to work, study, or receive health care? No 03/28/2023 Education Answer Date Recorded Are you interested in more education? Not on sameera e 04/02/2024 Are you concerned about learning? Not on file 04/02/2024 No 04/02/2024 No 04/02/2024 Food Answer Date Recorded Within the past 6 months we worried whether our food would run out before we got money to buy more. Never True 03/28/2023 Within the past 6 months the food we bought just didn't last and we didn't have enough money to get more. Never True Residential Stability Answer Date Recor ded What is your housing situation today? I have margie sing 03/28/2023 How many times have you move d in the past 12 months? Zero (I did not move) 03/28/2023 Paying for Meds Answer Date Recorded Do you have trouble paying for medicines? No 03/28/2023 Paying Utility Bills Answer Date Record ed Do you have trouble paying your heating or elect ricity bill? No 03/28/2023 Transportation Answer Date Recorded Has the lack of transportati on kept you from medical appointments or from getting medications? No 03/28/2023 Unemployment Answer Date Recorded Are you currently unemployed or working on a part-time or temporary basis, and looking for work? I choose not to answer 04/02/2022 Digital Access Answer Date Recorded No 03/28/2023 Yes 03/28/2023 Do you have reliable internet access at home? Ye s 03/28/2023 Do you have a device (e.g., phone, tablet, computer) with a working camera? Yes 03/28/2023 Intimate Partner Violence Answer Date R ecorded Denied Basic Needs Not on file 04/02/2024 In the past 12 months have y ou been in a relationship with a person who hurts, threatens, or tries to control you? No 04/02/2024 Worried food would run out Not on file 04/02 In the past 12 months have y ou been in a relationship with a person who hurts, threatens, or tries to control you? 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 Pt stated that the specialist told him if they do not receive the referral for this provider, they will need to cancel his appt tomorrow. Pt stated that his appt has already been rescheduled once. Situation escalated via Referral Fax Inquiries chat. Central Support Reference Investigator (Please do not reply to this user; this inbox is not monitored.) Thank you. * Christy Barahona - 11/10/2024 11:09 AM EDT Carolina from [facility] called in to follow up on the insurance referral status. Please contact and advise. Central Support Reference Investigator (Please do not reply to this user; this inbox is not monitored.) Thank you. * Christy Barahona - 11/06/2024 11:00 AM EDT Frankie from [facility] called in to follow up on this referral status. Please contact and advise. Central Support Reference Investigator (Please do not reply to this user; this inbox is not monitored.) Thank you. * Ирина Pascual RN - 10/01/2024 1:06 PM EDT Already a referral on file. * Sarika Montoya - 10/01/2024 12:58 PM EDT CD PEN Top Smart Phrases: Referral Request 1. Name of the office where the patient has been seen/requests to be seen: [facility] 2. Reason for referral/specialist appointment and the diagnosis code: H35.369 2A. Have you seen this provider before for this same problem? YES/NO: no 2B. If this is a new problem, is your PCP aware of your symptoms? YES/NO: yes 3. Date of appointment(s):10/22/24 4. Name of specialist provider: 5. NPI number to enter for referral authorization (enter n/a if not available): [id number] 6. Number of visits requested for referral: 6 7. Fax number of specialist office to send referral authorization: [phone] documented in this encounter Plan of Treatment Upcoming Encounters Date Type Department Care Team (Late st Contact Info) Description 04/09/2025 9:45 AM EST Office Visit [address] [address] Ren Hand DO [address] [place] [address] documented as of this encounter Visit Diagnoses Not on filedocumented in this encounter Additional Health Concerns Assessment Noted Time PHQ-9 Depression Total Score: 7 04/02/20 24 2:30 PM EST PHQ-2 Depression Total Score: 3 04/02/20 24 2:30 PM EST documented as of this encounter Care Teams Shuttle Filler Relationship Specialty Start Date End Date Ren Hand DO [address] [place] [address] PCP - General 04/25/17 Ren Hand DO [address] [place] [address] Historical LMR Provider 02/04/17 Ren Hand DO [address] [place] [address] Insurance Assigned Provider 07/27/23 documented as of this encounter Additional Source Comments The information contained in this document represents components of the legal health record. It is not the complete legal health record.[facility]
--- OUTSIDE RECORDS SUMMARY | 2024-12-22 07:26 | XMS_ITS | Encounter Summary ---
Author Organization [facility] Address [address] [place] [address] Phone Care Team Providers Care Forest Management Teacher Name Role Phone Ren Hand DO Unavailable Ren Hand DO Primary Care Provider [phone] Ren Hand DO Unavailable Encounter Details Date Type Department Care Team (Late st Contact Info) Description 12/20/2023 Transcribe Orders [facility] [address] [place] [address] Mary Lou Del Castillo, JEM [address] [place] [address] Dr Andres [place] [id number] Screening for prostate cancer (Primary Dx); Other specified abnormal findings of blood chemistry Social History Tobacco Use Types Packs/Day Years [...] Answer Date Recorded Are you interested in help w ith more adult education (for example, completing high school, GED, job training, learning the [place] language, technical skills, or developing parenting skills)? I choose not to answer 04/02/2022 Food Answer Date Recorded Within the past [...] your housing situation today? I have margie smith 03/28/2023 How many times have you move [...] ecorded Denied Basic Needs Not on file 03/28/2023 In the past 12 months have y ou been in a relationship with a person who hurts, threatens, or tries to control you? No 03/28/2023 Worried food would run out Not on file 03/28 In the past 12 months have y ou been in a relationship with a person who hurts, threatens, or tries to control you? No 03/28/2023 Sex and Gender Information Value Date Recorded [...] Description 04/09/2025 9:45 AM EST Office Visit [facility] [address] [place] [id number] Ren Hand DO [address] [place] [address] [email or web address] documented as of this encounter Results * PSA (screening) (12/20/2023 9:12 AM EDT) PSA 1.15 0 - 4.00 ng/mL [facility] Comment: Test Methodology Ulices e801 Patient results determined by assays using different manufacturers or methods may not be comparable. Blood 12/20/2023 9:12 AM EDT 12/20/2023 9:40 AM EDT Mary Lou Del Castillo LICENSE INSPECTOR LAB BLOOD ORDERABLES Final R esult [facility] [address] [place] [address] * (ABNORMAL) Testosterone, total and free (12/20/2023 9:12 AM EDT) FREE TESTOSTERONE 17.7(H) 3.28 - 12.2 ng/dL [facility]PER[facility] Comment: (NOTE) ADDITIONAL INFORMATION This test was developed and its performance characteristics determined by [facility] in a manner consistent with CLIA requirements. This test has not been cleared or approved by the U.S. Food and Drug Administration. TESTOSTERONE, TOTAL 606 240 - 950 ng/dL [facility] Comment: (NOTE) ADDITIONAL INFORMATION Testing performed by Liquid Chromatography-Tandem Mass Spectrometry (LC-MS/MS). This test was developed and its performance characteristics determined by [facility] in a manner consistent with CLIA requirements. This test has not been cleared or approved by the U.S. Food and Drug Administration. Blood 12/20/2023 9:12 AM EDT 12/20/2023 9:40 AM EDT Mary Lou Del Castillo LICENSE INSPECTOR LAB BLOOD ORDERABLES Final R esult [facility] [address] [place] [address] documented in this encounter Visit Diagnoses Diagnosis Screening for prostate cancer- Primary Special screening for malignant neoplasm of prostate Other specified abnormal findings of blood chemistry documented in this encounter Additional Health Concerns Assessment Noted Time PHQ-9 Depression Total Score: 8 04/02/20 22 11:34 AM EST PHQ-2 Depression Total Score: 2 03/28/20 23 1:26 PM EST documented as of this encounter Care Teams Forest Management Teacher Relationship Specialty Start Date End Date Ren Hand DO [address] [place] [address] PCP - General 04/25/17 Ren Hand DO [address] [place] [address] Historical LMR Provider 02/04/17 Ren Hand DO [address] [place] [address] Insurance Assigned Provider 07/27/23 documented as of this encounter Additional Source Comments The information contained in this document represents components of the legal health record. It is not the complete legal health record.[facility]
--- OUTSIDE RECORDS SUMMARY | 2024-12-22 07:26 | XMS_ITS | Clinical Summary ---
Author Organization [facility] Address [address] [place] [address] Phone Care Team Providers Care Women'S Studies Professor Name Role Phone Unavailable Primary Care Provider Unavailabl e Social History Tobacco Use Types Packs/Day Years Used Date Smoking Tobacco: Never Assessed Sex and Gender Information Value Date Recorded Sex Assigned at Not on file Legal Sex Male 1:34 PM EST Gender Identity Not on file Sexual Orientation Not on file Plan of Treatment Health Maintenance Due Date Last Done Comments Fall Prevention 1952 HIV Lifetime Screening 1952 Hepatitis B Lifetime Screening 1952 Hepatitis C Antibody Lifetim e Screening 1952 LIPID PANEL 1952 THRIVE SCREENING 1952 Oral Health Screen 04/01/1953 HEIP Disability Screen 1957 BEHAVIORAL HEALTH SCREEN 1964 Psych Substance Use Screen 1964 DTAP/TDAP VACCINE (1 - Tdap) 10/31/1971 Pneumonia Vaccine 50+ (1 of 1 - PCV) 2002 Zoster Vaccine (1 of 2) 2002 COVID-19 Vaccine ( - 2023-2 5 season) 2023 INFLUENZA VACCINE (#1) 2024 RSV Immunization 60 Years an d Older OR (1 - 1-dose 75+ series) 10/31/2027 Colorectal Cancer Screening Completed HPV VACCINES Aged Out No longer eligi ble based on patient's age to complete this topic IPV VACCINES Aged Out No longer eligi ble based on patient's age to complete this topic MENINGOCOCCAL B Aged Out No longer el igible based on patient's age to complete this topic ROTAVIRUS VACCINES Aged Out No longer eligible based on patient's age to complete this topic
--- OUTSIDE RECORDS SUMMARY | 2024-12-22 07:26 | XMS_ITS | Encounter Summary ---
Author Organization [facility] Address [address] [place] [address] Phone Care Team Providers Care Renal Dialysis Rn Name Role Phone Ren Hand DO Unavailable Ren Hand DO Primary Care Provider [phone] Ren Hand DO Unavailable Encounter Details Date Type Department Care Team (Late st Contact Info) Description 11/25/2018 Transcribe Orders [facility] [address] [place] [address] Ren Hand DO [address] [place] [phone] [email or web address] Social History Tobacco Use Types Packs/Day Years [...] Description 04/09/2025 9:45 AM EST Office Visit Ad [address] [address] Ren Hand DO [address] [place] [address] [email or web address] documented as of this encounter Visit Diagnoses Not on filedocumented in this encounter Additional Health Concerns Assessment Noted Time PHQ-2 Depression Total Score: 2 06/21/19 18 9:44 AM EST documented as of this encounter Care Teams Renal Dialysis Rn Relationship Specialty Start Date End Date Rne Hand DO [address] [place] [address] [email or web address] PCP - General 04/25/17 Ren Hand DO [address] [place] [address] [email or web address] Historical LMR Provider 02/04/17 Ren Hand DO [address] [place] [address] [email or web address] Insurance Assigned Provider 07/27/23 documented as of this encounter Additional Source Comments The information contained in this document represents components of the legal health record. It is not the complete legal health record.[facility]
--- OUTSIDE RECORDS SUMMARY | 2024-12-22 07:26 | XMS_ITS | Encounter Summary ---
Author Organization [facility] Address [address] [place] [address] Phone Care Team Providers Care Loading Machine Operator Helper Name Role Phone Ren Hand DO Unavailable Ren Hand DO Primary Care Provider [phone] Ren Hand DO Unavailable Encounter Details Date Type Department Care Team (Late st Contact Info) Description 05/24/2017 Transcribe Orders [facility] [address] [place] [address] Ren Hand DO [address] [place] [address] Social History Tobacco Use Types Packs/Day Years Used Date Smoking Tobacco: Never Assessed Sex and Gender Information Value Date Recorded Sex Assigned at Not on file Legal Sex Male 9:58 PM EDT Gender Identity Not on file Sexual Orientation Not on file documented as of this encounter Plan of Treatment Upcoming Encounters Date Type Department Care Team (Late st Contact Info) Description 04/09/2025 9:45 AM EST Office Visit Ad [facility] [address] [place] [address] Ren Hand DO [address] [place] [address] documented as of this encounter Visit Diagnoses Not on filedocumented in this encounter Care Teams Loading Machine Operator Helper Relationship Specialty Start Date End Date Ren Hand DO [address] [place] [address] PCP - General 04/25/17 Ren Hand DO [address] [place] [address] Historical LMR Provider 02/04/17 Ren Hand DO [address] [place] [address] Insurance Assigned Provider 07/27/23 documented as of this encounter Additional Source Comments The information contained in this document represents components of the legal health record. It is not the complete legal health record.[facility]
--- OUTSIDE RECORDS SUMMARY | 2024-12-22 07:26 | XMS_ITS | Encounter Summary ---
Author Organization [facility] Address [address] [place] [address] Phone Care Team Providers Care Credit Union Examiner Name Role Phone Ren Hand DO Unavailable Ren Hand DO Primary Care Provider [phone] Ren Hand DO Unavailable Encounter Details Date Type Department Care Team (Latest Contact Info) Description 02/04/2020 Transcribe Orders [facility] [address] [place] [address] Igor Qiu MD [address] [place] [id number] Hip pain (Primary Dx) Social History Tobacco Use Types [...] Description 04/09/2025 9:45 AM EST Office Visit [facility] [address] [place] [address] Ren Hand DO [address] [place] [address] [email or web address] documented as of this encounter Results * CBC and differential (02/04/2020 10:39 AM EDT) WBC 4.99 4.00 - 11.00 K/uL [facility] Comment:Note Reference Range updates to all CBC and Differential results. RBC 4.98 3.90 - 5.69 M/uL [facility] HGB 14.9 12.4 - 17.3 g/dL [facility] Comment:Note updated Referen ce Ranges for all CBC and Differential results. HCT 44.1 37.0 - 51.0 % [facility] PLT 196 140 - 430 K/uL [facility] MCV 88.6 78.0 - 97.0 fL [facility] MCH 29.9 25.0 - 33.0 pg [facility] MCHC 33.8 32.0 - 36.0 g/dL [facility] RDW 12.5 11.0 - 15.0 % [facility] MPV 11.5 8.4 - 12.8 fl [facility] NRBC 0.00 0 /100 WBCs [facility] ABSOLUTE NRBC 0.00 0 K/uL [facility] DIFF METHOD Auto [facility] NEUTS 55.7 43.0 - 75.0 % [facility] LYMPHS 28.3 18.2 - 47.4 % [facility] MONOS 11.0 4.00 - 11.00 % [facility] EOS 4.0 0.0 - 8.0 % [facility] BASOS 0.8 0.0 - 2.0 % [facility] Granulocytes, immature (%) 0.2 0.0 - 0.9 % [facility] ABSOLUTE NEUTS 2.78 1.80 - 7.70 K/uL [facility] ABSOLUTE LYMPHS 1.41 1.00 - 3.10 K/uL [facility] ABSOLUTE MONOS 0.55 0.20 - 0.80 K/uL [facility] ABSOLUTE EOS 0.20 0.00 - 0.80 K/uL [facility] ABSOLUTE BASOS 0.04 0.00 - 0.09 K/uL [facility] Granulocytes, immature 0.01 0.00 - 0.05 K/uL [facility] Blood 02/04/2020 10:3 9 AM EDT 02/04/2020 10:44 AM EDT Igor Qiu MD LAB BLOOD ORDERABLES Fin al Result Performing Organization Address City/[facility]/ZIP Co de Phone Number [address] [address] * (ABNORMAL) Comprehensive metabolic panel (02/04/2020 10:39 AM EDT) SODIUM 139 133 - 146 mmol/L [facility] POTASSIUM 4.4 3.3 - 5.1 mmol/L [facility] CHLORIDE 103 96 - 108 mmol/L [facility] CO2 24 21 - 35 mmol/L [facility] BUN 20(H) 6 - 19 mg/dL [facility] CREATININE 0.80 0.5 - 1.5 mg/dL [facility] GLUCOSE 98 70 - 99 mg/dL [facility] ALBUMIN 4.1 3.9 - 4.8 g/dL [facility] TOTAL PROTEIN 7.5 6.5 - 8.0 g/dL [facility] CALCIUM 9.4 8.4 - 10.3 mg/dL [facility] ALKALINE PHOSPHATASE 59 39 - 117 U/L [facility] TOTAL BILIRUBIN 0.4 0.0 - 1.2 mg/dL [facility] AST 26 0 - 37 U/L [facility] ALT 14 0 - 40 U/L [facility] GLOBULIN 3.4 1 - 4.8 g/dL [facility] EGFR 92 >59 mL/min/1.7 3m2 [facility] Comment:Estimated glomerular filtration rate calculated using the CKD-EPI equation. ANION GAP 16 10 - 20 mmol/L [facility] Blood 02/04/2020 10:3 9 AM EDT 02/04/2020 10:44 AM EDT Igor Qiu MD LAB BLOOD ORDERABLES Fin al Result Performing Organization Address City/[facility] Co de Phone Number [facility] [address] [place] [address] documented in this encounter Visit Diagnoses Diagnosis Hip pain- Primary Pain in joint, pelvic region and thigh documented in this encounter Additional Health Concerns Assessment Noted Time PHQ-2 Depression Total Score: 2 06/21/19 18 9:44 AM EST documented as of this encounter Care Teams Credit Union Examiner Relationship Specialty Start Date End Date Ren Hand DO [address] [place] [address] PCP - General 04/25/17 Ren Hand DO [address] [place] [address] Historical LMR Provider 02/04/17 Ren Hand DO [address] [place] [address] Insurance Assigned Provider 07/27/23 documented as of this encounter Additional Source Comments The information contained in this document represents components of the legal health record. It is not the complete legal health record.[facility]
--- OUTSIDE RECORDS SUMMARY | 2024-12-22 07:26 | XMS_ITS | Encounter Summary ---
Author Organization [facility] Address [address] [place] [address] Phone Care Team Providers Care Avionics Technician Name Role Phone Ren Hand DO Unavailable Ren Hand DO Primary Care Provider [phone] Ren Hand DO Unavailable Encounter Details Date Type Department Care Team (Late st Contact Info) Description 09/05/2020 Transcribe Orders [facility] [address] [place] [address] Carrillo Miguel MD [address] [place] [address] 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sm (Primary Dx); Elevated liver function tests Social History Tobacco Use Types Packs/Day Years [...] Description 04/09/2025 9:45 AM EST Office Visit [facility] [address] [place] [address] Ren Hand DO [address] [place] [address] [email or web address] documented as of this encounter Results * PSA (screening) (09/05/2020 8:58 AM EDT) PSA 0.90 0 - 4.00 ng/mL [facility] Blood 09/05/2020 8:58 AM EDT 09/05/2020 8:59 AM EDT us Carrillo Miguel MD LAB BLOOD ORDERABLES Final Result Performing Organization Address City/[facility]/ZIP Co de Phone Number [address] [address] * (ABNORMAL) CBC (09/05/2020 8:58 AM EDT) WBC 6.59 4.00 - 11.00 K/uL [facility] RBC 4.84 3.90 - 5.69 M/uL [facility] HGB 15.0 12.4 - 17.3 g/dL [facility] HCT 44.4 37.0 - 51.0 % [facility] PLT 109(L) 140 - 430 K/uL [facility] MCV 91.7 78.0 - 97.0 fL [facility] MCH 31.0 25.0 - 33.0 pg [facility] MCHC 33.8 32.0 - 36.0 g/dL [facility] RDW 12.9 11.0 - 15.0 % [facility] MPV 12.1 8.4 - 12.8 fl [facility] NRBC 0.00 0 /100 WBCs [facility] ABSOLUTE NRBC 0.00 0 K/uL [facility] Blood 09/05/2020 8:58 AM EDT 09/05/2020 9:00 AM EDT us Carrillo Miguel MD LAB BLOOD ORDERABLES Final Result [address] [place] [address] documented in this encounter Visit Diagnoses Diagnosis 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sm- Primary Other testicular hypofunction Elevated liver function tests Other abnormal blood chemistry documented in this encounter Additional Health Concerns Assessment Noted Time PHQ-2 Depression Total Score: 2 06/21/19 18 9:44 AM EST documented as of this encounter Care Teams Avionics Technician Relationship Specialty Start Date End Date Ren Hand DO [address] [place] [address] [email or web address] PCP - General 04/25/17 Ren Hand DO [address] [place] [address] Historical LMR Provider 02/04/17 Ren Hand DO [address] [place] [address] Insurance Assigned Provider 07/27/23 documented as of this encounter Additional Source Comments The information contained in this document represents components of the legal health record. It is not the complete legal health record.[facility]
--- OUTSIDE RECORDS SUMMARY | 2024-12-22 07:26 | XMS_ITS | Encounter Summary ---
Author Organization [facility] Address [address] [place] [address] Phone Care Team Providers Care Drill Punch Operator Name Role Phone Ren Hand DO Unavailable Ren Hand DO Primary Care Provider [phone] Ren Hand DO Unavailable Encounter Details Date Type Department Care Team (Late st Contact Info) Description 05/08/2019 Transcribe Orders [facility] [address] [place] [address] Ren Hand DO [address] [place] [phone] [email or web address] Social History Tobacco Use Types Packs/Day Years [...] 04/09/2025 9:45 AM EST Office Visit Ad [address] [address] Ren Hand DO [address] [place] [address] documented as of this encounter Visit Diagnoses Not on filedocumented in this encounter Additional Health Concerns Assessment Noted Time PHQ-2 Depression Total Score: 2 06/21/19 18 9:44 AM EST documented as of this encounter Care Teams Drill Punch Operator Relationship Specialty Start Date End Date Ren Hand DO [address] [place] [address] PCP - General 04/25/17 Ren Hand DO [address] [place] [address] Historical LMR Provider 02/04/17 Ren Hand DO [address] [place] [address] Insurance Assigned Provider 07/27/23 documented as of this encounter Additional Source Comments The information contained in this document represents components of the legal health record. It is not the complete legal health record.[facility]
--- OUTSIDE RECORDS SUMMARY | 2024-12-22 07:26 | XMS_ITS | Clinical Summary ---
Author Organization [facility] Address [address] [place] [address] Phone Care Team Providers Care Mud Mixer Name Role Phone Ren Hand DO Unavailable Ren Hand DO Primary Care Provider [phone] Ren Hand DO Unavailable Allergies No known active allergies Medications lutein 6 mg Cap Take 6 mg by mouth daily. [facility] 02/12/20 20 Active Medication-Free Text Take 20 mg by mouth daily. Bilberry 20 MG Capsule, daily 02/12/20 20 Active Medication-Free Text Take 1,200 mg by mouth daily. Fish Oil 1200 MG Capsule, daily 02/12/20 20 Active glucosam-chondr oitin-diet cb25 116-100 mg Cap Take 1 capsule by mouth daily. 02/12/20 20 Active ascorbic acid, vitamin C, (VITAMIN C) 1,000 mg TbER Take 1,000 mg by mouth daily. 02/12/20 20 Active testosterone (ANDROGEL) 20.25 mg/1.25 gram (1.62 %) transdermal gel pump Apply 2 application topically daily. 88 g 11/12/19 21 Active Medication-Free Text CURCUMINE MILK THISTLE MUSHROOM IMMUNE SUPPORT Active Medication-Free Text Zinc, milk thizel, resberatol, cod liver oil, oregano oil, Lion's christiano,mushroom immune support separate ingredients, not one supplement Active tadalafiL (CIALIS) 5 MG tablet Take 5 mg by mouth daily as needed for erectile dysfunction. Active meloxicam (MOBIC) 15 MG tablet Take 1 tablet by mouth daily as needed. 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 MRI revealed Mild acromioclavicular osteoarthritis. Curved acromion process Full-thickness tear at the confluence of supraspinatus and infraspinatus tendon fibers. Torn fibers retracted approximately 1 to 1.5 cm. Tear measures approximately 1 to 1.5 cm front to back. Supraspinatus and infraspinatus tendinopathy. Mild fatty atrophy of the supraspinatus and infraspinatus muscle bellies. The teres minor tendon is intact . Fatty atrophy of the teres minor muscle belly Subscapularis tendinopathy The long head of the biceps tendon is torn and retracted . Rupture of left biceps tendon 07/05/2023 Assessment & Plan (07/05/2023 1:11 PM EDT): Pt is scheduled for left shoulder surgery with Dr Guevara of [facility] on 08/02/23.MRI revealed Mild acromioclavicular osteoarthritis. Curved acromion process Full-thickness tear at the confluence of supraspinatus and infraspinatus tendon fibers. Torn fibers retracted approximately 1 to 1.5 cm. Tear measures approximately 1 to 1.5 cm front to back. Supraspinatus and infraspinatus tendinopathy. Mild fatty atrophy of the supraspinatus and infraspinatus muscle bellies. The teres minor tendon is intact . Fatty atrophy of the teres minor muscle belly Subscapularis tendinopathy The long head of the biceps tendon is torn and retracted . Anxiety 12/27/2022 Assessment & Plan (04/02/2024 2:47 PM EST): Situational anxiety related to difficulties with he neighbor. Pt using occasional lorazepam that he may use prn to assist with sleep and anxiety. He will be mindful of sedation and possible dependency. Pt working with a therapist. Assessment & Plan (03/28/2023 1:44 PM EST): Situational anxiety related to difficulties with he neighbor. Pt looking for legal recourse. In the meantime he will continue with rx for lorazepam that he may use prn to assist with sleep and anxiety. He will be mindful of sedation and possible dependency. Pt working with a therapist. Will consider med consult with psychiatry prn. Hopefully med requirement will be short lived and situation will be addressed shortly Assessment & Plan (12/27/2022 5:04 PM EDT): Situational anxiety related to difficulties with he neighbor. Pt looking for legal recourse. In the meantime he will be given an rx for lorazepam that he may use prn to assist with sleep and anxiety. He will be mindful of sedation and possible dependency. Pt working with a therapist. Will consider med consult with psychiatry prn. Hopefully med requirement will be short lived and situation will be addressed shortly Psychophysiological insomnia 12/27/2022 Assessment & Plan (04/02/2024 2:44 PM EST): Pt careful with sleep hygiene and uses lorazepam on average 1 x weekly. Chronic midline low back pain without sciatica 0 07/21/2021 Assessment & Plan (07/21/2021 1:32 PM EDT): Pt with likely lumbar DDD that appears to be responding well to HEP and chiropractic treatment. Pt without radicular symptoms, loss of power or sensation. MRI not warranted. We could consider XRay which would likely help confirm dx. PT may be helpful but injection and surgical intervention do not appear warranted and pt has little interest in these treatment options at this time. Pt will continue with HEP get xray and f/u prn. Physiatry consult may also be considered. Tick bite of right upper arm 03/10/2021 Assessment & Plan (03/10/2021 1:02 PM EST): Pt asymptomatic and treated with prophylactic antibiotics. Tick did test positive for lyme. We'll check labs in 2 weeks and start treatment if symptoms arise or testing warrants. Primary osteoarthritis of right hip 02/02/2020 Assessment & Plan (04/06/2022 10:47 AM EST): S/P THR 2020 with good effect. Assessment & Plan (02/02/2020 1:54 PM EDT): Pt cleared for surgery with Dr Qiu. Hypogonadism in male 02/02/2020 Assessment & Plan (04/02/2024 2:42 PM EST): Managing with testosterone supplementation. Follows with Dr Miguel and Ирина Del Castillo as well. Labs UTD and at goal 12/13 Assessment & Plan (03/28/2023 1:42 PM EST): Managing with testosterone supplementation. Follows with Dr Miguel as well. Labs UTD and at goal 12/12 Assessment & Plan (04/06/2022 10:44 AM EST): Managing with testosterone supplementation. Follows with Dr Miguel as well. Labs UTD 12/11 Assessment & Plan (03/10/2021 10:43 AM EST): Pt due for labs. Managing with testosterone supplementation. Follows with Dr Miguel as well. Assessment & Plan (02/02/2020 1:54 PM EDT): Pt due for labs. Managing with testosterone supplementation. Chronic pain of right knee 12/01/2019 Assessment & Plan (12/01/2019 2:55 PM EDT): ? Bucket handle tear of meniscus. Pt to use meloxicam during the day and will be given tramadol to use primarily at night. Pt cautioned regarding potential for sedation and dependency and will exercise caution. Referral to Dr Clarke pending for January. Right hip pain 12/01/2019 Advice given about COVID-19 virus by telephone 0 12/01/2019 Assessment & Plan (12/01/2019 2:56 PM EDT): A virtual visit was used during the COVID-[address] of an in-person visit. This real-time, interactive virtual clinical encounter was conducted using videoconferencing technology from clinic or home office. The patient participated in the visit from home/temporary residence or other location as specified below. Consent for virtual care, including informing the patient that insurance will be billed, and that in-person care is available in case of emergencies or as needed otherwise, was discussed at the time of scheduling. Cellulitis of left hand 12/05/2018 Assessment & Plan (12/05/2018 12:04 PM EDT): We'll treat with keflex and pt may use tylenol for discomfort. Xray does not appear warranted clinically at this time. Close f/u advised if pt's symptoms do not improve. Preop examination 06/20/2018 Assessment & Plan (07/05/2023 1:12 PM EDT): Pt is in good health with no contraindications to proceeding with surgery. Pt cleared for surgery. EKG shows NSR HR 71 with normal axis and intervals and no st changes. Pt to hold NSAID's, fish oil and curcumin 1 week prior to surgery and may otherwise continue current med regimen. Preop labs ordered. Assessment & Plan (02/02/2020 1:56 PM EDT): Pt is in good health with no contraindications to proceeding with surgery. Pt cleared for surgery. EKG shows NSR HR 74 with normal axis and intervals and no st changes. Pt may continue current med regimen. Preop labs and MRSA screen ordered. Assessment & Plan (06/20/2018 12:17 PM EST): Pt is in good health with no contraindications to proceeding with his rotator cuff repair. Pt cleared for surgery. EKG shows NSR HR [address] changes. Pt may continue current med regimen. Erectile dysfunction 05/01/2018 Assessment & Plan (04/02/2024 2:45 PM EST): Following with Dr Miguel uses Cialis prn Assessment & Plan (03/28/2023 1:42 PM EST): Following with Dr Miguel uses Viagra prn Assessment & Plan (04/06/2022 10:48 AM EST): Following with Dr Miguel uses Viagra prn Assessment & Plan (05/01/2018 7:15 PM EST): We will test labs as above and do a trial with viagra. Pt counseled on potential side effects. Pt has an appointment with urology pending as well but may elect to defer if the medication is helpful. Hamstring muscle strain, right, sequela 11/22/19 18 Assessment & Plan (11/22/2017 8:34 AM EDT): Pt to be referred to P.T. For likely biceps femoris strain. Pt follows with Wood Hernandez at [facility] [employer]. He will keep leg wrapped and apply ice. He may use ibuprofen for discomfort. We'll refer to Ortho prn. Benign prostatic hyperplasia with nocturia 06/20 Assessment & Plan (03/28/2023 1:45 PM EST): Stable s/p TURP. Assessment & Plan (04/06/2022 10:50 AM EST): Stable s/p TURP. Assessment & Plan (06/20/2017 9:47 AM EST): Stable s/p TURP. Stream has improved but nocturia persists. Dyslipidemia 06/20/2017 Assessment & Plan (05/22/2024 12:38 PM EST): Pt recently underwent coronary calcium score which showed moderate risk with a score of 221. Pt has been reluctant to take a statin. He does have family hx of CAD and 19.2% 10 year risk. Pt's with elevated cardiac risk and pt does report a significant family hx of CAD. He is advised that he is a candidate for statin therapy based on current guidelines. He is aware of the risk but wishes to remain off statins for the time being and will attempt to address through diet and exercise and may consider a trial with red yeast rice. Assessment & Plan (04/02/2024 2:42 PM EST): Pt's with elevated cardiac risk and pt does report a significant family hx of CAD. He is advised that he is a candidate for statin therapy based on current guidelines. He is aware of the risk but wishes to remain off statins for the time being and will attempt to address through diet and exercise and may consider a trial with red yeast rice. We'll repeat labs . Pt interested in calcium score as well The 10-year ASCVD risk score (Letitia YOUNGER, et al., 2019) is: 19.2% Values used to calculate the score: Age: 73 years Sex: Male Is Non- : No Diabetic: No Tobacco smoker: No Systolic Blood Pressure: 118 mmHg Is BP treated: No HDL Cholesterol: 51 mg/dL Total Cholesterol: 269 mg/dL Assessment & Plan (03/28/2023 1:41 PM EST): Pt's 10 year risk for heart disease returned at 17.5% in 2020 pt does report a significant family hx of CAD. He is advised that he is a candidate for statin therapy based on current guidelines. He is aware of the risk but wishes to remain off statins for the time being and will attempt to address through diet and exercise and may consider a trial with red yeast rice. We'll repeat labs . Assessment & Plan (04/06/2022 12:35 PM EST): Pt's 10 year risk for heart disease returned at 17.5% in 2020 pt does report a significant family hx of CAD. He is advised that he is a candidate for statin therapy based on current guidelines. He is aware of the risk but wishes to remain off statins for the time being and will attempt to address through diet and exercise and may consider a trial with red yeast rice. We'll continue to monitor. Repeat labs . Assessment & Plan (04/07/2021 8:46 AM EST): Pt's 10 year risk for heart disease returns at 17.5% pt does report a significant family hx of CAD. He is advised that he is a candidate for statin therapy based on current guidelines. He is aware of the risk but wishes to remain off statins for the time being and will attempt to address through diet and exercise and may consider a trial with red yeast rice. We'll continue to monitor. Repeat labs in the spring. Assessment & Plan (03/10/2021 10:45 AM EST): Pt has addressed through diet , exercise and weight loss. He is not interested in statin. Risk calculated at 9.8% primarily due to age when last checked. We'll repeat labs and continue to discuss options. Pt may look into red yeast rice as an option. Assessment & Plan (02/02/2020 1:54 PM EDT): Pt has addressed through diet , exercise and weight loss. He is not interested in statin. Risk calculated at 9.8% primarily due to age when last checked. We'll repeat labs and continue to discuss options. Assessment & Plan (06/20/2017 12:21 PM EST): Pt has addressed through diet , exercise and weight loss. He is not interested in statin. Values are good but new guidelines assess risk at 9.8% primarily due to age. Hiatal hernia 06/20/2017 Assessment & Plan (04/02/2024 2:46 PM EST): Pt advised to avoid late night meals, spicy foods, foods high in fat, caffeine, tobacco and alcohol. Pt advised to elevate the head of the bed and reduce weight. Pt using baking soda and water and PPI prn. Assessment & Plan (04/06/2022 10:45 AM EST): Not symptomatic if he does well with diet. Off of PPI. Assessment & Plan (06/20/2017 12:20 PM EST): Not symptomatic. Off of PPI. KATHY (obstructive sleep apnea) 06/20/2017 Assessment & Plan (04/02/2024 2:43 PM EST): Pt resumed cpap and he tolerates much better with newer model. Follows with sleep medicine. Assessment & Plan (03/28/2023 1:39 PM EST): Pt stopped using cpap as he found it difficult to tolerate. He does wish to revisit with sleep medicine. Referral placed. Assessment & Plan (04/06/2022 10:42 AM EST): Pt stopped using cpap as he found it difficult to tolerate. He does wish to revisit with sleep medicine. Referral placed. Assessment & Plan (03/10/2021 10:40 AM EST): Resolved with weight loss. No longer requiring CPAP. Assessment & Plan (06/20/2017 12:19 PM EST): Resolved with weight loss. No longer requiring CPAP. Osteoarthritis of left hip 06/20/2017 Assessment & Plan (04/06/2022 10:47 AM EST): S/P THR [address] Igor WINSLOW. Assessment & Plan (06/20/2017 12:19 PM EST): Pt underwent stem cell injections earlier this year and is giving it time to assess efficacy. He acknowledges that he will likely require hip replacement in the future. Trigger finger, right ring finger 06/20/2017 Annual physical exam 06/20/2017 Assessment & Plan (04/02/2024 2:57 PM EST): Fasting labs UTD. Pt had colonoscopy 06/[address] Murphy with 10 year f/u advised. Pt UTD with covid, flu, pneumonia and Tdap. Pt to get shingrix at the pharmacy Pt counseled on diet and exercise regimen. AAA screening UTD. Assessment & Plan (03/28/2023 1:49 PM EST): Fasting labs to be drawn. Pt had colonoscopy 06/[address] Murphy. Pathology of single polyp nondiagnostic. Likely will need f/u in May. Pt to contact Dr Murphy. Pt declines covid and flu vaccine today. UTD with pneumonia and Tdap. Pt to get shingrix at the pharmacy Pt counseled on diet and exercise regimen. AAA screening UTD. Assessment & Plan (04/06/2022 11:00 AM EST): Fasting labs to be drawn. Pt had colonoscopy 06/[address] Murphy. Pathology of single polyp nondiagnostic. Will need to confirm whether 5 or 10 year follow up is indicated. Pt UTD with covid, flu vaccine, pneumoni and Tdap. Pt to get shingrix at the pharmacy Pt counseled on diet and exercise regimen. AAA screening UTD. Assessment & Plan (03/10/2021 11:01 AM EST): Fasting labs to be drawn. Pt scheduled for colonoscopy in March. Pt declines flu vaccine. Tdap UTD 2020 Due for Covid booster and will schedule. Pt to get shingrix at the pharmacy Pt counseled on diet and exercise regimen. AAA screening at 65. Assessment & Plan (06/20/2017 12:18 PM EST): Fasting labs UTD and reviewed. Pt overdue for colonoscopy due for repeat 2017. Pt declines flu vaccine. Tdap UTD 2008. Pt counseled on diet and exercise regimen. AAA screening at 67. Incomplete tear of right rotator cuff 06/20/2017 Assessment & Plan (04/06/2022 10:49 AM EST): S/P repair 2019 in [facility]. Assessment & Plan (06/20/2017 9:56 AM EST): Follows with Dr Clarke currently doing P.T. Encounters Date Type Department Care Team Description 11/23/2024 Refill [facility] [address] [address] Ren Hand, DO Medication Refill 11/19/2024 3:14 PM EDT - 11/19/2024 11:59 PM EDT Hospital Encounter [facility] [address] [place] [address] Mary Lou Del Castillo NP Discharge Disposition: Home or Self Care 11/19/2024 Transcribe Orders [facility] [address] [place] [address] Mary Lou Del Castillo NP Screening for prostate cancer (Primary Dx); Male erectile disorder; Other specified abnormal findings of blood chemistry; Testicular failure 11/10/2024 Telephone [facility] [address] [place] [address] Honey Villalobos LPN referral 10/09/2024 Telephone [facility] [address] [place] [address] Ирина Pascual, family practice nurse practitioner 10/01/[address] [address] Ren Hand DO Referral ([facility]) 09/29/[address] [address] Ren Hand DO Medication Refill (Lorazepam ) from Last 3 Months Immunizations Immunization Administration Dates Next Due COVID-19 (Pre-02/11) Moderna Vaccine, Bivalent 6 mo+ 03/08/2022 COVID-19 (Pre-02/11) Moderna Vaccine, mRNA, PF 0 07/14/2020,06/16/2020 Influenza High-Dose Quadrivalent Preservative Fr ee IM 03/08/2022 Influenza Trivalent Adjuvanted Preservative free IM 12/20/2023,07/05/2019 Influenza, Unspecified Formulation 07/05/2019 Pneumococcal conjugate PCV13 03/08/2022 Pneumococcal polysaccharide PPSV23 07/05/2019 Td (adult),2 Lf Tetanus Toxoid, PF, Adsorbed Tdap 09/28/2008 Family History Medical History Relation Comments Heart attack Father Alzheimer's disease Mother Diabetes type II Mother Diabetes type II Paternal Grandfather Multiple myeloma Sister Relation Status Comments Father (Age 55) [place] Mother Paternal Grandfather Sister Social History Tobacco Use Types Packs/Day Years [...] file Not on file Not on file Last Filed Vital Signs Vital Sign Reading Time Taken Comments Blood Pressure 118/64 05/22/2024 9:36 AM EST Pulse 76 05/22/2024 9:36 AM EST Temperature 36.4 C (97.6 F) 05/22/2024 9:36 AM EST Respiratory Rate 20 05/22/2024 9:36 AM EST Oxygen Saturation 97% 05/22/2024 9:36 AM EST Inhaled Oxygen Concentration - - Weight 99.8 kg (220 lb) 05/22/2024 9:36 AM EST Height 181.6 cm (5' 11.5 ) 04/02/2024 2:28 PM ES T Body Mass Index 30.26 04/02/2024 2:28 PM EST Plan of Treatment Upcoming Encounters Date Type Department Care Team (Late st Contact Info) Description 04/09/2025 9:45 AM EST Office Visit [address] [address] Ren Hand, DO [address] [place] [id number] [email or web address] Health Maintenance Due Date Last Done Comments HEMOGLOBIN A1C 1952 SMOKING Hx and SMOKELESS TOBACCO SCREENING 1965 COLOGUARD 1997 FIT TEST 1997 FOBT 1997 SIGMOIDOSCOPY 1997 VIRTUAL COLONOSCOPY 1997 ZOSTER VACCINES (1 of 2) 2002 DIABETIC EYE EXAM 07/02/2024 URINE MICROALBUMIN/CREATININE RATIO 07/02/2024 07/03/2018 BLOOD PRESSURE 11/19/2024 05/22/2024 INFLUENZA VACCINE (#1) 2024 4, 03/08/2022, 03/08/2022, Additional history exists COVID-19 VACCINE ( season) 2024 12/20/2023, 03/08/2022, 07/14/2020, Additional history exists DEPRESSION SCREENING 04/02/2025 04/02/2024, 04/02/20 LIPID PANEL 06/12/2025 06/12/2024, 06/21, 04/07/2021, Additional history exists RSV VACCINE (1 - 1-dose 75+ series) 10/31/2027 COLONOSCOPY 06/13/2028 06/13/2018, 06/11/2018 COLORECTAL CANCER SCREENING 06/13/2028 Adult Td,Tdap Booster 09/08/2030 09/08/2020, 009 HEPATITIS C SCREENING Completed 04/07/2021 , 04/07/2021, 11/25/2018 ABDOMINAL AORTIC ANEURYSM (AAA) SCREENING Completed 06/23/2021 PNEUMOCOCCAL VACCINES (50+ years) Completed 03/08/2022, 07/05/2019 HEPATITIS A VACCINES Aged Out No long er eligible based on patient's age to complete this topic HIB VACCINES Aged Out No longer eligi ble based on patient's age to complete this topic MENINGOCOCCAL VACCINES (ACWY) Aged Out No longer eligible based on patient's age to complete this topic MENINGOCOCCAL VACCINES (B) Aged Out N o longer eligible based on patient's age to complete this topic Medical Devices Not on file Procedures Procedure Name Priority Date/Time Associated Diagnosis Comments PSA (SCREENING) Routine 11/19/2024 3:15 PM EDT Screening for prostate cancer Male erectile disorder Other specified abnormal findings of blood chemistry Testicular failure CBC Routine 11/19/2024 3:15 PM EDT Screening for prostate cancer Male erectile disorder Other specified abnormal findings of blood chemistry Testicular failure TESTOSTERONE, TOTAL AND FREE Routine 11/19/2024 3:15 PM EDT Screening for prostate cancer Male erectile disorder Other specified abnormal findings of blood chemistry Testicular failure LIPID PANEL Routine 06/12/2024 11:22 AM EST Dyslipidemia US ABDOMINAL AORTIC SCREENING Routine 06/23/2021 8:02 AM EST Screening for condition HEPATITIS C ANTIBODY, QUALITATIVE Routine 04/07/2021 4:01 PM EST Screening for STD (sexually transmitted disease) COLONOSCOPY FOR RESULT ENTRY ONLY Routine 06/13/2018 from Last 3 Months or Most Recently Relevant to Health Maintenance Results * Testosterone, total and free (11/19/2024 3:15 PM EDT) FREE TESTOSTERONE 80.2 30.0 - 135.0 pg/mL [facility] Comment: (NOTE) This test was developed and its analytical performance characteristics have been determined by [facility]. It has not been cleared or approved by the FDA. This assay has been validated pursuant to the CLIA regulations and is used for clinical purposes. Test Performed by: [facility]/[address] [id number] TESTOSTERONE, TOTAL 394 250 - 1,100 ng/dL [facility] Comment: (NOTE) Men age 18 or above, with clinically significant hypogonadal symptoms and total testosterone values repeatedly in the range of 200-300 ng/dL or less, may benefit from testosterone treatment after adequate risk and benefits counseling. For additional information, please refer to http://education.[email or web address].FTRANS/faq/TotalTestosteroneL [facility] (This link is being provided for informational/educational purposes only.) Blood 11/19/2024 3:15 PM EDT 11/19/2024 3:29 PM EDT us Mary Lou Del Castillo NP LAB BLOOD ORDERABLES Final R esult [facility] * (ABNORMAL) CBC (11/19/2024 3:15 PM EDT) WBC 6.54 4.00 - 11.00 K/uL [facility] RBC 4.85 4.50 - 5.90 M/uL [facility] HGB 14.7 13.5 - 17.5 g/dL [facility] HCT 43.1 41.0 - 53.0 % [facility] PLT 122(L) 150 - 450 K/uL [facility] MCV 88.9 80.0 - 100.0 fL [facility] MCH 30.3 27.0 - 31.0 pg [facility] MCHC 34.1 32.0 - 36.0 g/dL [facility] RDW 12.9 11.5 - 14.5 % [facility] MPV 12.4(H) 8.4 - 12.0 fL [facility] NRBC 0.00 0.00 /100 WBCs [facility] ABSOLUTE NRBC 0.00 0.00 K/uL [facility] Blood 11/19/2024 3:15 PM EDT 11/19/2024 3:29 PM EDT Mary Lou Del Castillo ENVIRONMENTAL SERVICES ATTENDANT LAB BLOOD ORDERABLES Final R esult [address] [address] * PSA (screening) (11/19/2024 3:15 PM EDT) PSA 1.40 0 - 4.00 ng/mL [facility] Comment: Test Methodology [facility] [id number] Patient results determined by assays using different manufacturers or methods may not be comparable. Blood 11/19/2024 3:15 PM EDT 11/19/2024 3:30 PM EDT Mary Lou Del Castillo ENVIRONMENTAL SERVICES ATTENDANT LAB BLOOD ORDERABLES Final R esult [address] [address] * (ABNORMAL) Lipid panel (06/12/2024 11:22 AM EST) HDL 45 mg/dL [facility] Comment: Interpretation <40 mg/dL: Low HDL cholesterol (major risk factor for CHD) Greater than or equal to 60 mg/dL: High HDL cholesterol ( negative risk factor for CHD) HDL - cholesterol is affected by a number of factors, e.g. smoking, excerise, hormones, sex and age. CHOLESTEROL 210 0 - 240 mg/dL [facility] TRIGLYCERIDES 147 30 - 160 mg/dL [facility] LDL 136(H) 50 - 129 mg/dL [facility] Comment: LDL levels in terms of risk for coronary heart disease: <100 mg/dL: Optimal 100-129 mg/dL: Near or above optimal 130-159 mg/dL: Borderline high 160-189 mg/dL: High >190 mg/dL: Very High CARDIAC RISK RATIO 4.7 3.4 - 5.0 [facility] Blood 06/12/2024 11:2 2 AM EST 06/12/2024 11:25 AM EST us Ren Hand DO LAB BLOOD ORDERABLES Final Resul t Performing Organization Address City/State/[facility] Co de Phone Number [address] [address] * US Abdominal Aortic Screening (06/23/2021 8:02 AM EST) Anatomical Region Laterality Modality Abdomen Ultrasound 06/23/2021 8:13 AM EST Impressions 06/23/2021 8:20 AM EST No evidence of abdominal aortic aneurysm POS [id number] Narrative 06/23/2021 8:20 AM EST No comparison The uppermost abdominal aorta is obscured by bowel gas. No dilatation is seen throughout the remainder of the aorta. Proximal: 2.3 x 2.3 cm. Mid: 2.2 x 2.2 cm. Distal: 1.8 x 1.8 cm. Right common iliac: 1.5 x 1.5 cm. Left common iliac: 1.3 x 1.3 cm Minimal amount of echogenic plaque in the right common iliac but essentially none elsewhere. Procedure Note Chris Sewell MD - 06/23/2021 No comparison The uppermost abdominal aorta is obscured by bowel gas. No dilatation is seen throughout the remainder of the aorta. Proximal: 2.3 x 2.3 cm. Mid: 2.2 x 2.2 cm. Distal: 1.8 x 1.8 cm. Right common iliac: 1.5 x 1.5 cm. Left common iliac: 1.3 x 1.3 cm Minimal amount of echogenic plaque in the right common iliac butessentially none elsewhere. IMPRESSION: No evidence of abdominal aortic aneurysm POS [id number] us Ren J Peace DO IMG US ABDOMEN Final Result * Hepatitis C antibody, qualitative (04/07/2021 4:01 PM EST) HCV NON-REACTIV E NON-REACTI VE [facility] Blood 04/07/2021 4:01 PM EST 04/07/2021 4:06 PM EST us Ren J Dillonus DO LAB BLOOD ORDERABLES Final Resul t [facility] [address] [place] [address] * COLONOSCOPY FOR RESULT ENTRY ONLY (06/13/2018) Historical Provider HEALTH MAINTENANCE Edited Result - Final from Last 3 Months or Most Recently Relevant to Health Maintenance Insurance [facility] Care Teams Mud Mixer Relationship Specialty Start Date End Date Ren Hand DO [address] [place] [phone] [email or web address] PCP - General 04/25/17 Ren Hand DO [address] [place] [id number] Historical LMR Provider 02/04/17 Ren Hand DO [address] [place] [id number] [email or web address] Insurance Assigned Provider 07/27/23 Additional Source Comments The information contained in this document represents components of the legal health record. It is not the complete legal health record.[facility]
--- OUTSIDE RECORDS SUMMARY | 2024-12-22 07:26 | XMS_ITS | Encounter Summary ---
Author Organization [facility] Address [address] [place] [address] Phone Care Team Providers Care English Instructor Name Role Phone Ren Hand DO Unavailable Ren Hand DO Primary Care Provider [phone] Ren Hand DO Unavailable Encounter Details Date Type Department Care Team (Late st Contact Info) Description 12/29/2019 Ancillary Orders Virtual Department [address] [place] [address] Igor Qiu MD [address] [place] [id number] Right hip pain; Left knee pain, unspecified chronicity; Right knee pain, unspecified chronicity Social History Tobacco Use Types Packs/Day Years [...] Description 04/09/2025 9:45 AM EST Office Visit [facility] [address] [place] [address] Ren Hand, DO [address] [place] [address] [email or web address] documented as of this encounter Results * XR HIP 2 VW RIGHT PLUS PELVIS (12/31/2019 10:53 AM EDT) Anatomical Region Laterality Modality Hip Right Radiographic Keshia ging 12/31/2019 4:06 PM EDT Impressions 12/31/2019 4:09 PM EDT Mild narrowing of the right hip joint. Narrative 12/31/2019 4:09 PM EDT EXAM: XR HIP 2 VW RIGHT PLUS PELVIS COMPARISON: May 03, 2015 FINDINGS: Status post left total hip arthroplasty. Mild narrowing of the right hip joint space, without significant sclerotic or cystic changes. Small calcification adjacent to the superior portion of the right acetabulum is stable from 2016. Right femoral head is well seated within acetabulum. Bilateral sacroiliac joints and symphysis pubis are congruent. No acute fractures. Procedure Note Opal Bhat MD - 12/31/2019 EXAM: XR HIP 2 VW RIGHT PLUS PELVIS COMPARISON: May 03, 2015 FINDINGS: Status post left total hip arthroplasty. Mild narrowing of the right hipjoint space, without significant sclerotic or cystic changes. Smallcalcification adjacent to the superior portion of the right acetabulum isstable from 2016. Right femoral head is well seated within acetabulum.Bilateral sacroiliac joints and symphysis pubis are congruent. No acutefractures. IMPRESSION: Mild narrowing of the right hip joint. Igor Qiu MD IMG XR PELVIS Final Re sult documented in this encounter Visit Diagnoses Diagnosis Right hip pain Pain in joint, pelvic region and thigh Left knee pain, unspecified chronicity Right knee pain, unspecified chronicity Right hip pain Pain in joint, pelvic region and thigh documented in this encounter Additional Health Concerns Assessment Noted Time PHQ-2 Depression Total Score: 2 06/21/19 18 9:44 AM EST documented as of this encounter Care Teams English Instructor Relationship Specialty Start Date End Date Ren Hand DO [address] [place] [address] PCP - General 04/25/17 Ren Hand DO [address] [place] [address] Historical LMR Provider 02/04/17 Ren Hand DO [address] [place] [address] Insurance Assigned Provider 07/27/23 documented as of this encounter Additional Source Comments The information contained in this document represents components of the legal health record. It is not the complete legal health record.[facility]
--- OUTSIDE RECORDS SUMMARY | 2024-12-22 07:26 | XMS_ITS | Encounter Summary ---
Author Organization [facility] Address [address] [place] [address] Phone Care Team Providers Care Sisal Operator Name Role Phone Ren Hand DO Unavailable Ren Hand DO Primary Care Provider [phone] Ren Hand DO Unavailable Encounter Details Date Type Department Care Team (Late st Contact Info) Description 05/08/2018 Transcribe Orders [facility] [address] [place] [address] Ren Hand DO [address] [place] [id number] Social History Tobacco Use Types Packs/Day Years [...] 04/09/2025 9:45 AM EST Office Visit Ad [address] [address] Ren Hand DO [address] [place] [address] documented as of this encounter Visit Diagnoses Not on filedocumented in this encounter Additional Health Concerns Assessment Noted Time PHQ-2 Depression Total Score: 2 06/21/19 18 9:44 AM EST documented as of this encounter Care Teams Sisal Operator Relationship Specialty Start Date End Date Ren Hand DO [address] [place] [address] PCP - General 04/25/17 Ren Hand DO [address] [place] [address] Historical LMR Provider 02/04/17 Ren Hand DO [address] [place] [address] Insurance Assigned Provider 07/27/23 documented as of this encounter Additional Source Comments The information contained in this document represents components of the legal health record. It is not the complete legal health record.[facility]
--- OUTSIDE RECORDS SUMMARY | 2024-12-22 07:26 | XMS_ITS | Encounter Summary ---
Author Organization [facility] Address [address] [place] [address] Phone Care Team Providers Care Event Specialist Name Role Phone Ren Hand DO Unavailable Ren Hand DO Primary Care Provider [phone] Ren Hand DO Unavailable Encounter Details Date Type Department Care Team (Late st Contact Info) Description 10/09/2019 Transcribe Orders [facility] [address] [place] [address] Ren Hand DO [address] [place] [address] [email or web address] Immunity status testing (Primary Dx) Social History Tobacco Use Types [...] Description 04/09/2025 9:45 AM EST Office Visit [facility] [address] [place] [address] Ren Hand DO [address] [place] [address] [email or web address] documented as of this encounter Results * SARS-CoV-2 antibody, total (10/22/2019 12:01 PM EDT) SARS-CoV-2 antibody total Negative Negative [facility] Comment: A negative test result does not rule out the possibility of an infection with SARS-CoV-2. Serum or plasma samples from the early (pre-seroconversion) phase of illness can yield negative findings. Therefore, this test cannot be used to diagnose an acute infection. Also, over time, titers may decline and eventually become negative. Blood 10/22/2019 12:0 1 PM EDT 10/22/2019 12:04 PM EDT us Ren Hand DO LAB BLOOD ORDERABLES Final Resul t [facility] [address] [place] [address] documented in this encounter Visit Diagnoses Diagnosis Immunity status testing- Primary Antibody response examination documented in this encounter Additional Health Concerns Assessment Noted Time PHQ-2 Depression Total Score: 2 06/21/19 18 9:44 AM EST documented as of this encounter Care Teams Event Specialist Relationship Specialty Start Date End Date Ren Hand DO [address] [place] [address] [email or web address] PCP - General 04/25/17 Ren Hand DO [address] [place] [address] Historical LMR Provider 02/04/17 Ren Hand DO [address] [place] [address] [email or web address] Insurance Assigned Provider 07/27/23 documented as of this encounter Additional Source Comments The information contained in this document represents components of the legal health record. It is not the complete legal health record.[facility]
--- OUTSIDE RECORDS SUMMARY | 2024-12-22 07:26 | XMS_ITS | Referral Summary ---
Author Organization [facility] Address [address] [place] [address] Phone Care Team Providers Care Insulation Board Back Tender Name Role Phone Unavailable Primary Care Provider Unavailabl e Social History Tobacco Use Types Packs/Day Years Used Date Smoking Tobacco: Never Assessed Sex and Gender Information Value Date Recorded Sex Assigned at Not on file Legal Sex Male 1:34 PM EST Gender Identity Not on file Sexual Orientation Not on file Plan of Treatment Not on file
--- OUTSIDE RECORDS SUMMARY | 2024-12-22 07:26 | XMS_ITS | Encounter Summary ---
Author Organization [facility] Address [address] [place] [address] Phone Care Team Providers Care Targeting Acquisition Officer Name Role Phone Rne Hand DO Unavailable Ren Hand DO Primary Care Provider [phone] Ren Hand DO Unavailable Encounter Details Date Type Department Care Team (Late st Contact Info) Description 12/31/2019 Ancillary Orders Virtual Department [address] [place] [address] Igor Qiu MD [address] [place] [id number] Right knee pain, unspecified chronicity Social History [...] Description 04/09/2025 9:45 AM EST Office Visit [facility] [address] [place] [address] Ren Hand DO [address] [place] [address] [email or web address] documented as of this encounter Results * XR KNEE 4 OR MORE VIEWS (BILATERAL) (12/31/2019 10:52 AM EDT) Anatomical Region Laterality Modality Knee Bilateral, Knee Right, Knee Left Radiographic Imaging 12/31/2019 4:04 PM EDT Impressions 12/31/2019 4:06 PM EDT Right: Mild degenerative changes of the medial compartment. Left: Moderate degenerative changes of the medial compartment. Narrative 12/31/2019 4:06 PM EDT EXAM: XR KNEE 4 OR MORE VIEWS (BILATERAL) COMPARISON: None FINDINGS: Right: Anatomic alignment is maintained. Mild narrowing of the medial femorotibial joint space. Subchondral sclerosis of the medial tibial plateau. No suprapatellar joint effusion. Tiny posterior patellar spurring. Left: Anatomic alignment is maintained. Moderate narrowing of the medial femorotibial joint space associated with marginal osteophytes. Subchondral sclerosis of the medial tibial plateau. No suprapatellar joint effusion. Posterior patellar spurring. Procedure Note Opal Bhat MD - 12/31/2019 EXAM: XR KNEE 4 OR MORE VIEWS (BILATERAL) COMPARISON: None FINDINGS: Right: Anatomic alignment is maintained. Mild narrowing of the medialfemorotibial joint space. Subchondral sclerosis of the medial tibialplateau. No suprapatellar joint effusion. Tiny posterior patellarspurring. Left: Anatomic alignment is maintained. Moderate narrowing of the medialfemorotibial joint space associated with marginal osteophytes. Subchondralsclerosis of the medial tibial plateau. No suprapatellar joint effusion.Posterior patellar spurring. IMPRESSION: Right: Mild degenerative changes of the medial compartment. Left: Moderate degenerative changes of the medial compartment. Igor Qiu MD IMG XR LOWER EXTREMITY F inal Result documented in this encounter Visit Diagnoses Diagnosis Right knee pain, unspecified chronicity Right knee pain, unspecified chronicity documented in this encounter Additional Health Concerns Assessment Noted Time PHQ-2 Depression Total Score: 2 06/21/19 18 9:44 AM EST documented as of this encounter Care Teams Targeting Acquisition Officer Relationship Specialty Start Date End Date Ren Hand DO [address] [place] [address] [email or web address] PCP - General 04/25/17 Ren Hand DO [address] [place] [address] [email or web address] Historical LMR Provider 02/04/17 Ren Hand DO [address] [place] [address] [email or web address] Insurance Assigned Provider 07/27/23 documented as of this encounter Additional Source Comments The information contained in this document represents components of the legal health record. It is not the complete legal health record.[facility]
--- OUTSIDE RECORDS SUMMARY | 2024-12-22 07:26 | XMS_ITS | Encounter Summary ---
Author Organization [facility] Address [address] [place] [address] Phone Care Team Providers Care Equipment Planner Name Role Phone Unavailable Primary Care Provider Unavailabl e Encounter Details Date Type Department Care Team (Late st Contact Info) Description 07/24/2016 Orders Only Orthopaedic Surgery [address] [facility] [place] [id number] Heladio Cowan MD [address] [facility] [address] [place] [address] Pain in left hip Social History Tobacco Use Types Packs/Day Years Used Date Smoking Tobacco: Never Assessed Sex and Gender Information Value Date Recorded Sex Assigned at Not on file Legal Sex Male 1:34 PM EST Gender Identity Not on file Sexual Orientation Not on file documented as of this encounter Plan of Treatment Not on file documented as of this encounter Procedures Procedure Name Priority Date/Time Associated Diagnosis Comments XR PELVIS W 2 VIEWS OF THE LEFT HIP Routine 07/24/2016 11:40 AM EDT Pain in left hip documented in this encounter Results * X-Ray Pelvis with 2 Views of the Left Hip (07/24/2016 11:40 AM EDT) Anatomical Region Laterality Modality Left Xray Auto [place] 07/24/2016 11:4 0 AM EDT Impressions 07/24/2016 1:38 PM EDT Advanced degenerative change in the left hip joint, as described. No acute abnormality. 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 I personally reviewed the study and agree with the dictated report. Narrative 07/24/2016 1:38 PM EDT EXAMINATION: PELVIS WITH 2 VIEWS OF THE LEFT HIP HISTORY: Left hip pain. COMPARISON: No prior studies are listed for comparison. TECHNIQUE: Single frontal view of the pelvis and 2 views of the left hip. FINDINGS: The bony pelvis is intact and no fractures or subluxations are present. There is end-stage joint space narrowing in the weightbearing aspect of the left hip joint, with a [id number]-[id number] appearance and subchondral sclerosis and cystic change on both sides of the joint. There is a small circumferential ring osteophyte in the left femoral head-neck junction. The right hip joint appears unremarkable. Sacroiliac joints, pubic symphysis and soft tissues demonstrate no abnormalities. 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 Resulting Agency Comment Dictated By: CAMRON LEACH M.D. Date: 07/24/2016 01:38 PM Electronically Signed By: CAMRON LEACH M.D. Date: 07/24/2016 01:38 PM Procedure Note Camron Leach MD - 07/24/2016 EXAMINATION: PELVIS WITH 2 VIEWS OF THE LEFT HIP HISTORY: Left hip pain. COMPARISON: No prior studies are listed for comparison. TECHNIQUE: Single frontal view of the pelvis and 2 views of the left hip. FINDINGS: The bony pelvis is intact and no fractures or subluxations are present. There is end-stage joint space narrowing in the weightbearing aspect of the left hip joint, with a [id number]-[id number] appearance and subchondral sclerosis and cystic change on both sides of the joint. There is a small circumferential ring osteophyte in the left femoral head-neck junction. The right hip joint appears unremarkable. Sacroiliac joints, pubic symphysis and soft tissues demonstrate no abnormalities. 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 No acute abnormality. 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 I personally reviewed the study and agree with the dictated report. us Heladio Cowan MD IMG DIAGNOSTIC IMAGING ORDERABL ES Final Result documented in this encounter Visit Diagnoses Diagnosis Pain in left hip documented in this encounter
--- OUTSIDE RECORDS SUMMARY | 2024-12-22 07:26 | XMS_ITS | Encounter Summary ---
Author Organization [facility] Address [address] [place] [address] Phone Care Team Providers Care Rivet Sorter Name Role Phone Ren Hand DO Unavailable Ren Hand DO Primary Care Provider [phone] Ren Hand DO Unavailable Encounter Details Date Type Department Care Team (Late st Contact Info) Description 03/22/2020 Ancillary Orders Virtual Department [address] [place] [address] Igor Qiu MD [address] [place] [phone] Right hip pain Social History Tobacco Use Types Packs/Day Years [...] Description 04/09/2025 9:45 AM EST Office Visit [address] [address] Ren Hand DO [address] [place] [address] [email or web address] documented as of this encounter Results * XR HIP 3+ VW RIGHT PLUS PELVIS (03/23/2020 1:45 PM EST) Anatomical Region Laterality Modality Hip, Pelvis Radiographic Keshia ging 03/23/2020 1:53 PM EST Impressions 03/23/2020 2:00 PM EST 1.Status post bilateral total hip replacements. No hardware related complications seen. 2.Mild deformity of the greater trochanter of the right femur may be postsurgical or posttraumatic. Narrative 03/23/2020 2:00 PM EST EXAM: XR HIP 3+ VW RIGHT PLUS PELVIS COMPARISON: December 31, 2019 FINDINGS: Patient is status post bilateral total hip replacement, most recent on the right side. Satisfactory alignment of the prosthetic components. No lucency surrounding the hardware to suggest loosening. Mild deformity of the greater trochanter of the right femur. Mild deformity of the lesser trochanter of the right femur is similar to prior radiographs. Bilateral sacroiliac joints and symphysis pubis are unremarkable. Included portions of the lower lumbar spine is unremarkable. Nonobstructive bowel gas pattern. Small calcifications in the soft tissues of the bilateral hip regions, similar to prior study. Procedure Note Opal Bhat MD - 03/23/2020 EXAM: XR HIP 3+ VW RIGHT PLUS PELVIS COMPARISON: December 31, 2019 FINDINGS: Patient is status post bilateral total hip replacement, most recent on theright side. Satisfactory alignment of the prosthetic components. Nolucency surrounding the hardware to suggest loosening. Mild deformity ofthe greater trochanter of the right femur. Mild deformity of the lessertrochanter of the right femur is similar to prior radiographs. Bilateralsacroiliac joints and symphysis pubis are unremarkable. Included portionsof the lower lumbar spine is unremarkable. Nonobstructive bowel gaspattern. Small calcifications in the soft tissues of the bilateral hipregions, similar to prior study. IMPRESSION: 1.Status post bilateral total hip replacements. No hardware relatedcomplications seen. 2.Mild deformity of the greater trochanter of the right femur may bepostsurgical or posttraumatic. Igor Qiu MD IMG XR PELVIS Final Re sult documented in this encounter Visit Diagnoses Diagnosis Right hip pain Pain in joint, pelvic region and thigh Right hip pain Pain in joint, pelvic region and thigh documented in this encounter Additional Health Concerns Assessment Noted Time PHQ-2 Depression Total Score: 2 06/21/19 18 9:44 AM EST documented as of this encounter Care Teams Rivet Sorter Relationship Specialty Start Date End Date Ren Hand DO [address] [place] [address] [email or web address] PCP - General 04/25/17 Ren Hand DO [address] [place] [address] Historical LMR Provider 02/04/17 Ren Hand DO [address] [place] [address] Insurance Assigned Provider 07/27/23 documented as of this encounter Additional Source Comments The information contained in this document represents components of the legal health record. It is not the complete legal health record.[facility]
== END 2024-12-22 12:09 | disposition home or self-care (01) ==
LOC: HO.HUSH 07:24
PROVIDERS: PCP Family Medicine; Visit Provider Nurse Practitioner Family
DX: N52.9 Male erectile dysfunction, unspecified (principal); R79.89 Other specified abnormal findings of blood chemistry
CPT/HCPCS: 99213